=== PATIENT | female | born 1995 | race Caucasian/White ===

== ENCOUNTER 2018-07-08 14:29 | Outpatient (CLI) | payer BC, SELFPAY ==
[2018-07-08 15:15] LABS: Abs Immature Grans 0.01 k/cumm (0.0-0.09); Absolute Eosinophil Count 0.08 k/cumm (0.0-0.7); Absolute Lymphocyte Count 1.28 k/cumm (1.2-3.4); Absolute Monocyte Count 0.39 k/cumm (0.11-0.7); Absolute Neutrophil Count 5.41 k/cumm (1.2-6.7); Eosinophils % 1.1; HCT 39.1 % (36.0-46.0); HGB 13.6 g/dL (12.0-15.5); Immature Grans % 0.1; Lymphocytes % 17.9; Mean Corp. HGB Concentration 34.8 g/dL (32.0-36.0); Mean Corpuscular Hemoglobin 29.1 pg (27.0-33.0); Mean Corpuscular Volume 83.5 fL (80-95); Mean Platelet Volume 9.9 fL (8.0-11.0); Monocytes % 5.4; Neutrophils % 75.5; Platelet Count 267 x1000/uL (130-400); RBC 4.68 m/cumm (4.00-5.20); White Blood Cell Count 7.17 k/cumm (4.4-10.8)
[2018-07-08 17:11] LABS: FREE T4 1.23 ng/dL (0.76-1.46)
[2018-07-09 10:09] LABS: HIV-1/2 Ag & Ab Screen Negative (NEGAT)
[2018-07-11 11:15] LABS: Hepatitis C Ab w Rflx HCV PCR Negative (NEGAT)
[2018-07-11 12:07] LABS: Hepatitis B Surface Ag Negative (NEGAT)
[2018-07-11 13:58] LABS: Rubella IgG Ab (UVM) Positive; Syphilis Serology (RPR) Negative (Negative)
[2018-07-11 14:02] LABS: Varicella IgG Antibody Positive
== END 2018-07-08 14:49 ==
PROVIDERS: PCP Specialist/Technologist Athletic Trainer; Visit Provider Advanced Practice Midwife
DX: Z34.91 Encounter for supervision of normal pregnancy, unspecified, first trimester (principal); Z11.4 Encounter for screening for human immunodeficiency virus [HIV]; Z11.59 Encounter for screening for other viral diseases; Z01.84 Encounter for antibody response examination
CPT/HCPCS: 36415; 80055; 86787; 86803; 86850; 86900; 86901; 87340; 87389; 84439; 84443; 86592; 86762

== ENCOUNTER 2018-07-08 16:45 | Outpatient (REF) | payer BC, SELFPAY ==
--- NOTE | 2018-07-08 14:45 | PAPFT_PTH ---
PATIENT: Karin Nair LOC: [facility] U#:[id number] AGE/SX: 23/F ROOM: RE07/08/[address]: Sherrie Kenny CNM : 1995 BED: DIS: 07/08/2018 SPEC #: [id number] RECD: 07/08/18 18:03 STATUS: AARON RECayden #: [id number] RICARDO: 07/08/18 14:[address]: Sherrie Kenny DEPT: [facility] Cytology RECD BY: Eloise Dumont ENTERED: 07/08/18 18:04 SP TYPE: PAPFT OTHR DR: Vinicio Hauser Tissues: 1 - CX/ENDOCX FOR PAP SMEARS Procedures: PAP THIN PREP/[facility] Screening Comments: [id number]
[2018-07-08 19:19] LABS: *AMPHETAMINES SCREEN URINE Negative (Negative); *BARBITURATES SCREEN URINE Negative (Negative); *BENZODIAZEPINES SCREEN URINE Negative (Negative); Cannabinoids THC Negative (Negative); Cocaine Screen,Urine Negative (Negative); METHADONE URINE SCREEN Negative (Negative); OPIATES URINE SCREEN Negative (Negative)
[2018-07-08 19:44] LABS: Tricyclic Antidepressants Negative (Negative)
[2018-07-11 15:30] LABS: Chlamydia Result Negative; GC Result Negative
[2018-07-13 08:28] LABS: Buprenorphine Negative
== END 2018-07-08 17:05 ==
LOC: LBN 16:45
PROVIDERS: PCP Specialist/Technologist Athletic Trainer; Visit Provider Advanced Practice Midwife
DX: Z12.4 Encounter for screening for malignant neoplasm of cervix (principal); Z11.3 Encounter for screening for infections with a predominantly sexual mode of transmission; Z34.91 Encounter for supervision of normal pregnancy, unspecified, first trimester
CPT/HCPCS: 80307; 87491; 87591; 88142; 87086

== ENCOUNTER 2018-07-15 10:09 | Outpatient (CLI) | payer BC, SELFPAY ==
[2018-07-15 11:44] LABS: Glucose,1 Hr (Glucola) 129 mg/dL (80-140)
[2018-07-15 11:57] LABS: TSH (W/Ref FT4) 0.29 uIU/mL (0.358-3.74)
[2018-07-15 12:25] LABS: FREE T4 1.06 ng/dL (0.76-1.46)
[2018-07-18 09:24] LABS: Thyroglobulin Antibody 83 U/mL (<61); Thyroperoxidase Antibody 28 U/mL (<61)
== END 2018-07-15 10:29 ==
PROVIDERS: PCP Specialist/Technologist Athletic Trainer; Visit Provider Advanced Practice Midwife
DX: R79.89 Other specified abnormal findings of blood chemistry (principal); Z34.91 Encounter for supervision of normal pregnancy, unspecified, first trimester
CPT/HCPCS: 36415; 82950; 86376; 84439; 84443

== ENCOUNTER 2018-08-26 00:09 | Outpatient (CLI) | payer BC, SELFPAY ==
--- NOTE | 2018-08-26 14:04 | DI.US_ITS ---
SYMPTOMS/DIAGNOSIS: ANATOMY SCAN, Z34.90 OB ULTRASOUND: Many abnormalities cannot be diagnosed. A normal exam does not exclude a congenital anomaly. Radiology No. [id number] LMP: 04/17/18 Exam Date: 08/26/18 [facility] wks days on EDC ([facility]) 01/22/19 Confirmed: HISTORY: ---- PREDICTED GESTATIONAL AGE NUMBER 18+5 weeks with a range of 17+5 weeks to 19+5 weeks. 1 Determined by___1STUS___LMP___HISTORY PLACENTA PRESENTATION Grade I Cephalic___ Anterior___Posterior_X__ Breech____ Right Left Transverse(head right___ Fundal___Low-lying___Previa___ Transverse(head left___ Varying__X____ BIOMETRY AMNIOTIC FLUID BPD: 42 mm 18+5 weeks Normal HC: mm 19 weeks Oligo Polyhydramnios AC: mm 18+3 weeks FL: mm 18+5 weeks AMNIOTIC FLUID INDEX >26 WK CRL: mm weeks Cisterna Magna: 3.0 mm CI: 82 RUQ: LUQ Cerebellum: 1.9 cm EFW: 249 +/- 37 grams Percentile RLQ: LLQ Total: cms Composite AGE= 18+5 wks EDC by US: 01/22/19 BIOPHYSICAL PROFILE ANATOMY IDENTIFIED SCORE 0/2 Heart: 4-Chamber_X__Rate:BPM 152 LVOT:____X RVOT:____X____ Amniotic Fluid(>2cms)____ Stomach:___X____ Kidneys:___X____ Respirations (>30 secs) Bladder:___X Post. Fossa:__X Body Flex/Extension 3-vessel cord:___X____Ventricles:___X Cord insertion:__X___ Lips:_X___ Extremity Flex/Extension Spinal morphology:____X____Nose:__X__ Total Score= Palate:__X NS=not seen COMMENTS: OB ultrasound was performed utilizing second trimester protocol. biometry is consistent with gestational age of 18 weeks 5 days and an EDC of 01/22/19. Placenta is posterior with no evidence of placenta previa. There is visually a normal quantity of amniotic fluid. anomaly screen is within normal limits as per the attached checklist.
[2018-09-05 17:27] LABS: Result Summary NEGATIVE; Specimen WB Whole Blood
== END 2018-08-26 00:29 ==
PROVIDERS: Nurse Practitioner; PCP Specialist/Technologist Athletic Trainer; Visit Provider Advanced Practice Midwife
DX: Z34.92 Encounter for supervision of normal pregnancy, unspecified, second trimester (principal); Z36.89 Encounter for other specified antenatal screening; Z13.228 Encounter for screening for other metabolic disorders
CPT/HCPCS: 36415; 76805; 81220

== ENCOUNTER 2018-11-08 14:52 | Outpatient (CLI) | payer BC, SELFPAY ==
[2018-11-08 15:28] LABS: HCT 35.1 % (36.0-46.0); HGB 11.6 g/dL (12.0-15.5); Mean Corpuscular Hemoglobin 29.3 pg (27.0-33.0); Mean Corpuscular Volume 88.6 fL (80-95); Mean Platelet Volume 9.8 fL (8.0-11.0); Platelet Count 279 x1000/uL (130-400); RBC 3.96 m/cumm (4.00-5.20); RBC Distribution Width 13.7 % (11.7-14.6); White Blood Cell Count 8.82 k/cumm (4.4-10.8)
[2018-11-08 15:42] LABS: Glucose,1 Hr (Glucola) 126 mg/dL (80-140)
== END 2018-11-08 15:12 ==
PROVIDERS: PCP Specialist/Technologist Athletic Trainer; Visit Provider Advanced Practice Midwife
DX: Z34.93 Encounter for supervision of normal pregnancy, unspecified, third trimester (principal)
CPT/HCPCS: 36415; 82950; 85027

== ENCOUNTER 2018-12-28 16:25 | Outpatient (REF) | payer BC, SELFPAY | END 2018-12-28 16:45 | LOC: LBN 16:25 | PROVIDERS: PCP Specialist/Technologist Athletic Trainer; Visit Provider Advanced Practice Midwife | DX: Z34.93 Encounter for supervision of normal pregnancy, unspecified, third trimester (principal); Z36.85 Encounter for antenatal screening for Streptococcus B | CPT/HCPCS: 87081 ==

== ENCOUNTER 2019-01-30 09:54 | Outpatient (CLI) | payer BC, SELFPAY | END 2019-01-30 10:14 | PROVIDERS: PCP Specialist/Technologist Athletic Trainer; Visit Provider Advanced Practice Midwife | DX: O48.0 Post-term pregnancy (principal); Z3A.41 41 weeks gestation of pregnancy | CPT/HCPCS: 59025 ==

== ENCOUNTER 2019-02-01 21:29 | Observation (INO) | payer BC, SELFPAY | END 2019-02-02 00:15 | disposition home or self-care (01) | PROVIDERS: Admitting Provider Advanced Practice Midwife; PCP Specialist/Technologist Athletic Trainer; Visit Provider Advanced Practice Midwife | DX: O47.1 False labor at or after 37 completed weeks of gestation (principal); O48.0 Post-term pregnancy; Z3A.41 41 weeks gestation of pregnancy | CPT/HCPCS: G0378 ==

== ENCOUNTER 2019-02-02 08:42 | Outpatient (CLI) | payer BC, SELFPAY | END 2019-02-02 09:02 | PROVIDERS: PCP Specialist/Technologist Athletic Trainer; Visit Provider Advanced Practice Midwife | DX: O48.0 Post-term pregnancy (principal); Z3A.41 41 weeks gestation of pregnancy | CPT/HCPCS: 59025 ==

== ENCOUNTER 2019-02-03 10:59 | Inpatient (IN) | payer BC, SELFPAY ==
[2019-02-03] MEDS: miSOPROStol 50 MCG TAB PO (12:57)
[2019-02-03 19:31] LABS: HCT 37.3 % (36.0-46.0); HGB 12.6 g/dL (12.0-15.5); Mean Corp. HGB Concentration 33.8 g/dL (32.0-36.0); Mean Corpuscular Hemoglobin 28.8 pg (27.0-33.0); Mean Corpuscular Volume 85.2 fL (80-95); Mean Platelet Volume 10.7 fL (8.0-11.0); Platelet Count 307 x1000/uL (130-400); RBC 4.38 m/cumm (4.00-5.20); RBC Distribution Width 14.2 % (11.7-14.6); White Blood Cell Count 10.58 k/cumm (4.4-10.8)
[2019-02-03] MEDS: CLINDAMYCIN 900 MG/50 ML BAG 50 MG IVPB ×2 (21:59→22:00)
[2019-02-04] MEDS: Bupivacaine 0.25% Pres-Free 10 ML VIAL EP (02:00)
[2019-02-04] MEDS: Lidocaine 1% Pres-Free 5 ML VIAL IJ (02:00)
[2019-02-04] MEDS: fentaNYL 100 MCG/2 ML VIAL EP (02:45)
[2019-02-04] MEDS: Bupivacaine 0.25% Pres-Free 10 ML VIAL (03:17)
[2019-02-04] MEDS: FentaNYL/ROPIvacaine 2 mcg/ml and 0.1% 200 ML CADD Cassette EP (03:17)
[2019-02-04] MEDS: CLINDAMYCIN 900 MG/50 ML BAG 50 MG IVPB (06:08)
[2019-02-04] MEDS: Lactated Ringers 1,000 ML 125 ML IV (14:45)
[2019-02-04] MEDS: Lidocaine 1% Multi-Dose 50 ML VIAL (15:34)
--- NOTE | 2019-02-04 15:51 | W.PM.OP ---
Date of service: 02/04/19 Time of Service: 15:51 Operative Note DATE OF PROCEDURE: 02/04/19 PRE-OP DIAGNOSIS: Vaginal laceration following POST-OP DIAGNOSIS: same PROCEDURE: Repair of vaginal and labial obstetrical lacerations SURGEON: Abhishek Kenyon ANESTHESIA: MAC, regional and local ESTIMATED BLOOD LOSS: 200 PATHOLOGY: none sent COMPLICATIONS: None Patient was transported to: floor Patient's condition: stable Findings: 1. Sulcus laceration extending into ischiorectal fossa on right and entire length of vagina to right lateral fornix 2. Full thickness bilateral labial laceratios. 3. Second degree perineal laceration 4. Right labia minora laceration Procedure Description: The patient was taken to the operating room and under both epidural anesthesia and sedation she was prepped and draped in the usual sterile manner. A Nichole retractor was placed in the vagina. The apex of the sulcus laceration was identified and a running stitch of 2-0 vicryl was used to repair the laceration. The labial lacerations were repaired bilaterally with interrupted horizontal mattress sutures of 3-0 vicryl. The laceration to the right labia minor was repaired with 4-0 vicryl suture. Vaginal packing and a sims catheter were placed. The procedure was concluded. Sponge, lap and needle counts were correct at the conclusion of the procedure. The patient tolerated the procedure well and was transferred to the floor in stable condition.
[2019-02-04] MEDS: HYDROcodone 5/Acetaminophen 325 TAB PO (20:29)
[2019-02-05] MEDS: HYDROcodone 5/Acetaminophen 325 TAB PO ×3 (03:11→20:33)
[2019-02-05] MEDS: Acetaminophen 325 MG TAB 650 MG PO ×3 (04:58→16:56)
[2019-02-05] MEDS: Ibuprofen 600 MG TAB PO ×3 (04:58→16:56)
[2019-02-05 07:02] LABS: HCT 30.6 % (36.0-46.0); HGB 9.9 g/dL (12.0-15.5); Mean Corp. HGB Concentration 32.4 g/dL (32.0-36.0); Mean Corpuscular Hemoglobin 28.2 pg (27.0-33.0); Mean Corpuscular Volume 87.2 fL (80-95); Mean Platelet Volume 10.5 fL (8.0-11.0); Platelet Count 221 x1000/uL (130-400); RBC 3.51 m/cumm (4.00-5.20); RBC Distribution Width 14.5 % (11.7-14.6); White Blood Cell Count 10.28 k/cumm (4.4-10.8)
[2019-02-05] MEDS: Docusate Sodium 100 MG CAP PO ×2 (07:48→18:25)
[2019-02-05] MEDS: Hamamelis Leaf/Glycerin 100 EACH BOX PR (07:49)
[2019-02-06] MEDS: HYDROcodone 5/Acetaminophen 325 TAB PO ×2 (02:15→08:17)
[2019-02-06] MEDS: Acetaminophen 325 MG TAB 650 MG PO (02:15)
[2019-02-06] MEDS: Ibuprofen 600 MG TAB PO ×2 (02:15→08:17)
== END 2019-02-06 14:55 | disposition home or self-care (01) | DRG 807 ==
PROVIDERS: Obstetrics & Gynecology; Admitting Provider Advanced Practice Midwife; PCP Specialist/Technologist Athletic Trainer; Visit Provider Advanced Practice Midwife
PROC: 0KQM0ZZ Repair Perineum Muscle, Open Approach (ICD-10-PCS; CPT 57260; principal; 2019-02-04 14:40)
DX: O70.1 Second degree perineal laceration during delivery (principal); Z37.0 Single live birth; O69.2XX0 Labor and delivery complicated by other cord entanglement, with compression, not applicable or unspecified; O69.81X0 Labor and delivery complicated by cord around neck, without compression, not applicable or unspecified; O48.0 Post-term pregnancy; Z3A.41 41 weeks gestation of pregnancy; O99.824 Streptococcus B carrier state complicating childbirth; O32.8XX0 Maternal care for other malpresentation of fetus, not applicable or unspecified; Z88.0 Allergy status to penicillin
CPT/HCPCS: 59300; 36415; 85027; 86850; 86900; 86901; 59025; 59200; G0378; J1885; J3010

== ENCOUNTER 2019-03-17 12:48 | Outpatient (REF) | payer BC, SELFPAY ==
--- NOTE | 2019-03-17 11:55 | PAPFT_PTH ---
PATIENT: Karin Nair LOC: [facility] U#:[id number] AGE/SX: 24/F ROOM: RE03/17/[address]: Sergei Tapia RN : 1995 BED: DIS: 03/17/2019 SPEC #: [id number] RECD: 03/17/19 17:18 STATUS: AARON RECayden #: [id number] RICARDO: 03/17/19 11:[address]: Sergei Tapia [facility] Cytology RECD BY: Eloise Dumont ENTERED: 03/17/19 17:18 SP TYPE: PAPFT OTHR DR: Vinicio Hauser Tissues: 1 - CX/ENDOCX FOR PAP SMEARS Procedures: PAP THIN PREP/[facility] Screening Comments: [id number]
[2019-03-17 19:29] LABS: Bilirubin Negative (Negative); Blood Negative (Negative); Clarity Clear; Glucose Negative (Negative); Ketones Negative (Negative); Leukocyte Esterase Negative (Negative); Nitrite Negative (Negative); Specific Gravity 1.015 (1.005-1.025); Urobilinogen 0.2 EU/dL (Up TO 0.2)
== END 2019-03-17 13:08 ==
LOC: LBN 12:48
PROVIDERS: PCP Specialist/Technologist Athletic Trainer; Visit Provider Advanced Practice Midwife
DX: N32.81 Overactive bladder (principal); Z12.4 Encounter for screening for malignant neoplasm of cervix
CPT/HCPCS: 88142; 81003; 87086

== ENCOUNTER 2019-07-22 14:16 | Emergency (ER) | payer BC, SELFPAY ==
[2019-07-22 14:23] VITALS: BP 151/85; PULSE 95; RESP 18; TEMP 36.7; O2SAT 100
--- NOTE | 2019-07-22 14:42 | DI.RAD_ITS ---
EXAM: XR CHEST 2V PA LATERAL INDICATION: cough. COMPARISON: No exams were available for comparison TECHNIQUE: 2D digital imaging was performed. FINDINGS: Heart size and pulmonary vasculature within normal limits. The lungs are clear. No effusions or pne umothoraces are identified. No acute osseous abnormalities present. IMPRESSION: No acute pulmonary process.
--- NOTE | 2019-07-22 15:44 | DI.VRAD_ITS ---
PROCEDURE INFORMATION: Exam: XR Chest, 2 Views Exam date and time: 07/22/2019 2:42 PM Clinical history: 24 years old, female; Other: Cough TECHNIQUE: Imaging protocol: XR of the chest Views: 2 views. COMPARISON: No relevant prior studies available. FINDINGS: Lungs: Unremarkable. Normal lung expansion. No consolidation. Pleural space: Unremarkable. No pleural effusion. No pneumothorax. Heart/Mediastinum: Unremarkable. No cardiomegaly. Bones/joints: Unremarkable. IMPRESSION: Normal chest exam. Dictated and Authenticated by: Lilia Beaver MD. Ordering:NICHOLAS Dee MD
--- NOTE | 2019-07-23 16:26 | ED.GENADUL_ITS ---
Discharge Plan Disposition Patient Disposition: HOME Condition: Good Discharge Details Chief Complaint: RespSymp Clinical Impression: Bronchitis Primary Care Provider: Vinicio Hauser ED Provider: Leila Weinstein Home Meds and New Rx's Prescriptions: New albuterol sulfate [Proventil HFA] 90 mcg/actuation HFA aerosol inhaler 2 puff IH Q6H PRN (Reason: shortness of breath or wheezing) Qty: 8 RF: 0 No Action magnesium 250 mg tablet 250 mg PO DAILY RF: 0 Zyrtec 10 mg capsule 10 mg PO DAILY RF: 0 Vitamin tablet 1 tab PO DAILY RF: 0 cholecalciferol (vitamin D3) 1,000 unit capsule 1,000 unit PO DAILY RF: 0 norethindrone (contraceptive) 0.35 mg tablet 0.35 mg PO DAILY Qty: 84 RF: 3 (DME) breast pump device See Dose Instructions .ROUTE .MEDSUPPLY Qty: 1 RF: 0 Discharge Instructions Instructions: Acute Bronchitis (ED) Additional Instructions: Drink plenty of fluids. Rest activities as tolerated. Consider [id number] cough medication or honey as discussed. Use inhaler every 6 hours for coughing or shortness of breath associated with wheezing as discussed. Your chest x-ray today is reassuring. Recheck with primary care doctor and if not improving in the next 3 days.@Return for any worsening, concerns, fever or alarming symptoms sooner if needed. Discharge Data Discharge Date/Time-TO BE ENTERED AT DEPARTURE: 07/22/19 15:56 Medical Decision Making Is a very pleasant 24-year-old patient who presents for complaints of persistent cough lasting approximately 3 weeks. Patient did complete a course of azithromycin 1 week ago which did somewhat relieve her symptoms but is concerned with the persistent cough. Patient denies active chest or back pain. Patient is requesting chest x-ray today to be sure she has no persistent pneumonia. Patient ultimately has an unremarkable chest x-ray today. No identified p neumonia or respiratory infection or effusion. FINDINGS: Lungs: Unremarkable. Normal lung expansion. No consolidation. Pleural space: Unremarkable. No pleural effusion. No pneumothorax. Heart/Mediastinum: Unremarkable. No cardiomegaly. Bones/joints: Unremarkable. IMPRESSION: Normal chest exam. Given patient has no associated fever and is not ill-appearing I do feel is most appropriate to treat patient symptomatically. Patient is breast-feeding and is quite concerned about the use of cough medications. Patient does consent to an inhaler. Conservative treatments also encouraged. The patient was stable and requested discharge. Prior to discharge, my usual and customary return precautions were reviewed with the patient - this included follow-up instructions and reasons to return to the Emergency Department if conditions worsens, does not improve as expected, or other new concerns arise. HPI General Date/Time Provider Initiated Documentation: 07/22/19 14:48 . HPI Narrative: This is a 24-year-old woman who presents to the emergency room today for persistent cough. Patient reports she has been sick for the last 3 weeks. Patient reports originally nasal congestion, sore throat and coughing. Patient reports 1 week ago she was seen and evaluated and treated with azithromycin which did improve some of her symptoms but yet cough continues to persist. Patient reports mild wheezing. Patient denies difficulty breathing or shortness of breath. She does report mild malaise. No measured fever or chills at this time. Denies significant chest or back pain. No abdominal pain, nausea, vomiting or diarrhea associated. Patient eating and drink without difficulty. No voice change or trismus. Patient seeking reevaluation today due to persistence of complaints Related Data Home Medications Medication Instructions Recorded Confirmed cholecalciferol (vitamin D3) 1,000 1,000 unit PO DAILY 06/03/18 03/17/19 unit capsule prenat.vits,nayeli,smg-hhom-tuczf 1 tab PO DAILY 06/03/18 07/22/19 magnesium 250 mg tablet 250 mg PO DAILY tab 08/05/18 03/17/19 cetirizine 10 mg capsule 10 mg PO DAILY 12/28/18 03/17/19 breast pump #1 each 02/06/19 03/17/19 norethindrone (contraceptive) 0.35 0.35 mg PO DAILY #84 tab 02/17/19 03/17/19 mg tablet albuterol sulfate [Proventil HFA] 2 puff IH Q6H PRN #8 gm 07/22/19 Previous Rx's Medication Instructions Recorded breast pump #1 each 02/06/19 norethindrone (contraceptive) 0.35 0.35 mg PO DAILY #84 tab 02/17/19 mg tablet albuterol sulfate [Proventil HFA] 2 puff IH Q6H PRN #8 gm 07/22/19 Allergies Allergy/AdvReac Type Severity Reaction Status Date / Time Penicillins Allergy Unverified 07/22/19 14:27 General Stated Complaint: RespSymp ZOE: 4 Review of Systems All systems reviewed & are unremarkable except as noted in HPI and below Constitutional Constitutional: Denies fever(s), Denies headache(s) and Reports malaise ENT Ears, Nose, Mouth, and Throat: Denies vertigo, Denies dizziness, Denies headache(s), Denies sinus pain, Denies sinus pressure and Reports sore throat Cardiovascular Cardiovascular: Denies dyspnea on exertion Respiratory Respiratory: Reports cough, Denies dyspnea on exertion, Denies stridor and Reports wheezing Gastrointestinal Gastrointestinal: Denies abdominal pain, Denies nausea and Denies vomiting Genitourinary Genitourinary: Denies dysuria Neurologic Neurologic: Denies vertigo, Denies dizziness and Denies headache(s) Allergic/Immunologic Allergic/Immunologic: Reports wheezing PFSH Medical History Bilateral fibroadenoma's breasts BMI 37.0-37.9, adult (Acute) Fibroadenoma of breast (Acute) (Resolved) Surgical History Biopsy of breast 08/2013 bilateral breast fibroadenoma's [facility] [place] teeth extractions Family History (Updated 07/08/18 @ 13:34 by Sommer Kenny) Mother Diabetes GDM each x2, Obesity Hypertension depression Father No problems noted. 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 Date GA/Weeks # Outcome Route Wgt Sex Labor Lgth Anesthes ia Location Prov Complic 02/04/19 41 No Successful vaginal 3.572 kg Female Sommer Kenny CNM Delivery Date: 02/04/19 On 02/16/19 @ 12:32 Viki REALStephanie extensive vaginal lacerations perineal,vaginal second degree Exam Narrative Exam Narrative: CONST: Healthy appearing patient, in no acute distress. Well hydrated. Alert and alert. HENMT: Head nomocephalic, normal to inspection. Atraumatic. Hearing grossly normal. Patient with mild erythema to the TMs bilaterally without significant associated effusion. No sinus pain and pressure with palpation. Patient with mild pharyngeal erythema. EYES: General normal appearance. Alignment normal. Eyelids normal. Conjunctiva normal. NECK: Normal visual inspection. FROM. Trachea midline. No Midline tenderness. No cervical lymph adenopathy present CHEST: Normal insepection of the chest. RESP: Normal respiratory effort. Speaking full sentences. No cough. No audible wheezing. No retractions. Breath sounds are equal and full bilaterally. No significant wheezing on exam, rhonchi's or rales. Cardio: No murmurs, rubs. Regular rate and rhythm. SKIN: Normal. Dry. No rashes. NEURO: Alert and awake. Speech clear. PSYCH: Normal affect. Cooperative. Course Vital Signs Vital signs: Vital Signs Temperature 36.7 C 07/22/19 14:23 Pulse 95 H 07/22/19 14:23 Respiratory Rate 18 07/22/19 14:23 Blood Pressure 151/85 H 07/22/19 14:23 Pulse Oximetry 100 07/22/19 14:23 Temperature 36.7 C 07/22/19 14:23 Temperature Source Temporal Artery Scan 07/22/19 14:23 Pulse 95 H 07/22/19 14:23 Respiratory Rate 18 07/22/19 14:23 Respiratory Effort Non-Labored 07/22/19 14:39 Blood Pressure 151/85 H 07/22/19 14:23 Pulse Oximetry 100 07/22/19 14:23 Oxygen Delivery Method Room Air 07/22/19 14:23 Oxygen Flow Rate 0 07/22/19 14:23 Pain Level 0 07/22/19 14:23
== END 2019-07-22 15:56 | disposition home or self-care (01) ==
PROVIDERS: Emergency Provider Physician Assistant; PCP Specialist/Technologist Athletic Trainer
DX: J20.9 Acute bronchitis, unspecified (principal)
CPT/HCPCS: 99283; 71046

== ENCOUNTER 2021-07-07 19:15 | Outpatient (REF) | payer BC, SELFPAY ==
[2021-07-07 20:54] LABS: *AMPHETAMINES SCREEN URINE Negative (Negative); *BARBITURATES SCREEN URINE Negative (Negative); *BENZODIAZEPINES SCREEN URINE Negative (Negative); Cannabinoids THC Negative (Negative); Cocaine Screen,Urine Negative (Negative); METHADONE URINE SCREEN Negative (Negative); OPIATES URINE SCREEN Negative (Negative)
[2021-07-07 20:55] LABS: Tricyclic Antidepressants Negative (Negative)
[2021-07-09 16:09] LABS: Chlamydia Result Negative (Negative); GC Result Negative (Negative)
[2021-07-12 12:30] LABS: Buprenorphine Negative ng/mL (Cutoff: 5.0); Norbuprenorphine Negative ng/mL (Cutoff: 2.5)
== END 2021-07-07 19:16 | disposition home or self-care (01) ==
LOC: LBN 19:15
PROVIDERS: PCP Specialist/Technologist Athletic Trainer; Visit Provider Advanced Practice Midwife
DX: O26.891 Other specified pregnancy related conditions, first trimester; N89.8 Other specified noninflammatory disorders of vagina; Z34.91 Encounter for supervision of normal pregnancy, unspecified, first trimester
CPT/HCPCS: 80307; 87491; 87591; 87086; 87480; 87510; 87660

== ENCOUNTER 2021-07-14 02:56 | Outpatient (CLI) | payer BC, SELFPAY ==
[2021-07-14 07:22] LABS: Kit/Specimen SENT
[2021-07-14 07:34] LABS: Abs Immature Grans 0.02 10^3/uL (0.0-0.06); Absolute Basophil Count 0.01 10^3/uL (0.0-0.2); Absolute Eosinophil Count 0.06 10^3/uL (0.0-0.7); Absolute Monocyte Count 0.28 10^3/uL (0.1-0.8); Absolute Neutrophil Count 5.67 10^3/uL (1.2-6.7); Basophils % 0.1; Eosinophils % 0.9; HCT 40.3 % (36.0-46.0); HGB 13.4 g/dL (11.2-15.7); Immature Grans % 0.3; Lymphocytes % 14.2; MCH 28.9 pg (27.0-33.0); MCHC 33.3 % (32.0-36.0); MPV 9.9 fL (8.0-11.0); Neutrophils % 80.5; Nucleated RBC 0 %; Platelet Count 239 10^3/uL (130-400); RBC 4.63 10^6/uL (3.93-5.22); RDW 12.8 % (11.7-14.6); RDW-SD 40.3 fL; WBC 7.04 10^3/uL (4.4-10.8)
[2021-07-14 07:45] LABS: Glucose,1 Hr (Glucola) 91 mg/dL (80-140)
[2021-07-15 10:03] LABS: Hepatitis B Surface Ag Negative (Negative)
[2021-07-15 10:10] LABS: Varicella IgG Antibody Positive (See Note)
[2021-07-15 10:20] LABS: Rubella IgG Ab (UVM) Positive (See Note)
[2021-07-15 10:40] LABS: HIV-1/2 Ag & Ab Screen Negative (Negative)
[2021-07-15 10:45] LABS: Hepatitis C Ab w Rflx HCV PCR Negative (Negative)
[2021-07-15 14:41] LABS: Syphilis Total Ab w/Reflex Nonreactive (Nonreactive)
[2021-07-17 11:51] LABS: Specimen WB Whole Blood
== END 2021-07-14 02:57 | disposition home or self-care (01) ==
LOC: LBO 02:56
PROVIDERS: PCP Specialist/Technologist Athletic Trainer; Visit Provider Advanced Practice Midwife
DX: Z34.91 Encounter for supervision of normal pregnancy, unspecified, first trimester (principal)
CPT/HCPCS: 36415; 81329; 82950; 86787; 86803; 86850; 86900; 86901; 87340; 87389; 85025; 86762; 86780

== ENCOUNTER 2021-10-13 01:52 | Outpatient (CLI) | payer BC, SELFPAY ==
[2021-10-13 14:39] LABS: HCT 38.6 % (36.0-46.0); MCHC 33.7 % (32.0-36.0); MCV 88.9 fL (80-95); MPV 9.4 fL (8.0-11.0); Platelet Count 233 10^3/uL (130-400); RBC 4.34 10^6/uL (3.93-5.22); RDW 13.4 % (11.7-14.6); RDW-SD 43.7 fL; WBC 7.57 10^3/uL (4.4-10.8)
[2021-10-13 14:54] LABS: Glucose,1 Hr (Glucola) 144 mg/dL (80-140)
== END 2021-10-13 01:53 | disposition home or self-care (01) ==
LOC: LBO 01:52
PROVIDERS: PCP Specialist/Technologist Athletic Trainer; Visit Provider Advanced Practice Midwife
DX: Z34.93 Encounter for supervision of normal pregnancy, unspecified, third trimester (principal)
CPT/HCPCS: 36415; 82950; 85027

== ENCOUNTER 2021-10-27 01:37 | Outpatient (CLI) | payer BC, SELFPAY ==
[2021-10-27 09:08] LABS: Glucose 1 Hour 141 mg/dL
[2021-10-27 10:55] LABS: Glucose 3 Hour 112 mg/dL
== END 2021-10-27 01:38 | disposition home or self-care (01) ==
LOC: LBO 01:37
PROVIDERS: PCP Specialist/Technologist Athletic Trainer; Visit Provider Advanced Practice Midwife
DX: Z34.93 Encounter for supervision of normal pregnancy, unspecified, third trimester (principal); Z3A.29 29 weeks gestation of pregnancy
CPT/HCPCS: 36415; 82951

== ENCOUNTER 2021-12-23 19:59 | Outpatient (REF) | payer BC, SELFPAY ==
[2021-12-23 19:42] LABS: *AMPHETAMINES SCREEN URINE Negative (Negative); *BARBITURATES SCREEN URINE Negative (Negative); *BENZODIAZEPINES SCREEN URINE Negative (Negative); Cannabinoids THC Negative (Negative); Cocaine Screen,Urine Negative (Negative); METHADONE URINE SCREEN Negative (Negative); OPIATES URINE SCREEN Negative (Negative)
[2021-12-23 19:44] LABS: Tricyclic Antidepressants Negative (Negative)
[2021-12-30 10:34] LABS: Buprenorphine Negative ng/mL (Cutoff: 5.0)
== END 2021-12-23 20:00 | disposition home or self-care (01) ==
LOC: LBN 19:59
PROVIDERS: PCP Specialist/Technologist Athletic Trainer; Visit Provider Advanced Practice Midwife
DX: Z34.93 Encounter for supervision of normal pregnancy, unspecified, third trimester (principal); Z3A.36 36 weeks gestation of pregnancy; Z36.85 Encounter for antenatal screening for Streptococcus B
CPT/HCPCS: 80307; 87081

== ENCOUNTER 2022-01-13 23:19 | Inpatient (IN) | payer BC, SELFPAY ==
[2022-01-13 23:33] VITALS: BP 122/82; PULSE 75; RESP 18; TEMP 36.4
--- NOTE | 2022-01-13 23:36 | W.PM.OBHPL1 ---
Date of service: 01/13/22 Time of Service: 23:36 Assessment and Plan Assessment and plan (1) PROM with onset of labor within 24 hours of rupture: Status: Acute Assessment and plan: A: 27 yo @ 39+5 wks PROM at home <4 hrs ago, meconium tinged fluid Onset of spontaneous active labor Category 1 tracing; GBS negative Minimal risk for SD and PPH P: Admit to BC, CBC, T&S, COVID swab Expectant management, anticipate OB-HPI Labor/Delivery History of Present Illness Reason for Visit: SROM at term, spontanteous labor Chief Complaint: Uterine Contractions (contractions began about an hour after water broke); Suspected Rupture of Membranes , Associated Signs and Symptoms of Suspected ROM: large gush of fluid, brown/green tinged, at 2030. GARETH Calculator Estimated Delivery Date Method Current WG Current Estimate 01/14/22 LMP (Certain) 39w 6d Other Estimates 01/16/22 Ultrasound #1 39w 4d History of Present Expected Delivery Route/Plan - CNM FOB/ - Adrian Nair (2nd child together) BB yes to heather Johnson GBS neg support team: her mother Deonna & EDWARD (both vaccinated) Plans epidural if labor goes long Specific Issues/Plan 1. SMA and Nydia test desired lab appointment made - claritest neg 1a. SMA neg- declines AFP. Previously known CF negative 2. BMI >30 so early glucose ordered to be done with initial labs- glucose 91 2a. 28 week glucose 144. 3 hr GTT = normal (83/141/122/112) 3. Discussed option of PCN allergy testing at [facility], patient will let us know if she wants to do that 3a. Pt now 23 weeks, is interested in allergy testing, will refer 4. Covid vaccine status: Karin is vaccinated and boosted, Adrian had J&J vaccine 11/29/21 5. Constipation - stopped magnesium as headaches improved- encouraged to resume taking, increase to BID 6. Difficult latch and growth issues initially, successful after. Review of Systems All systems reviewed & are unremarkable except as noted in HPI and below Cardiovascular Cardiovascular: Reports as per HPI Respiratory Respiratory: Reports as per HPI Genitourinary Genitourinary: Reports system reviewed and no additional complaints, except as documented and Reports as per HPI Musculoskeletal Musculoskeletal: Reports back pain PFSH All Active Problems (Updated 01/13/22 @ 23:46 by Sherrie Kenny) PROM with onset of labor within 24 hours of rupture (Acute) Allergy history, penicillin (Acute) (Acute) Fibroadenoma of breast (Acute) BMI 37.0-37.9, adult (Acute) Medical History (Updated 01/13/22 @ 23:46 by Sherrie Kenny) Bilateral fibroadenoma's breasts Frequent headaches Took magnesium daily during Surgical History Biopsy of breast 08/2013 bilateral breast fibroadenoma's [facility] [place] teeth extractions Family History (Updated 07/07/21 @ 14:29 by Jackie Fernandez CNM) Mother Diabetes GDM each x2, Obesity Hypertension depression Personal history of malignant neoplasm Father Hypertension Personal history of malignant neoplasm Brother ADHD Paternal Grandfather Cancer kidney cancer Colon cancer Maternal Aunt Breast cancer double mastectomy no radiation, confined to milk duct. 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 Date GA/Weeks # Outcome Route Wgt Sex Labor Lgth Anesthesia Location Prov Complic 02/04/19 41 No Successful vaginal 7 lb 14 oz Female 24 regional Sommer Kenny CNM Delivery Date: 02/04/19 Last Updated by: Jackie Davalos CNM Manual OP rotation to OA, extensive lacerations repaired by MD. Huber. cervical ripening with misoprostol. Meds Allergies and Home Medications Allergies Allergy/AdvReac Type Severity Reaction Status Date / Time Penicillins Allergy Verified 01/13/22 10:28 Home Medications Medication Instructions Recorded Confirmed Type prenat.vits,nayeli,owg-snmm-nsekc 1 tab PO DAILY 06/03/18 01/13/22 History ( Vitamin) magnesium 250 mg tablet 500 mg PO DAILY tab 08/05/18 01/13/22 History docusate sodium 100 mg capsule 100 mg PO DAILY PRN 11/24/21 01/13/22 History (Colace) psyllium husk 0.4 gram capsule 0.4 g PO DAILY PRN 11/24/21 01/13/22 History (Daily Fiber) cetirizine 10 mg capsule (Zyrtec) 10 mg PO DAILY PRN 12/23/21 01/13/22 History Exam Physical Exam Vital signs: 122/82, 75, 18, 97.5 Vital Signs Reviewed: Yes Narrative: Pt accompanied by FOB and her mother as support Constitutional Constitutional: moderate distress, obese and cooperative Detailed Labor and Delivery Exam Dilation: 5 Effacement (%): 80 station: -3 Position: OP Cervix position: mid Consistency: soft VASQUEZ Score(Cervical Ripeness Score): 9 Amniotic Membrane Status: Ruptured Rupture Method: Spontaneous Amniotic Fluid: Meconium Pooling: Positive (gross rupture noted upon arrival to unit) Contraction Frequency(min): q2 Contraction Duration(sec): 50-70 Contraction Intensity: Moderate Fetus A Heart Rate Baseline: 130 Monitor Accelerations: 15 X 15 Monitor Decelerations: None Variability: Moderate (6-25 BPM) Presentation: Cephalic Categories: Category I Est. Weight: 8 lb 2.514 oz Est. Weight: 3700 gms Date of Membrane Rupture: 01/13/22 Time of Membrane Rupture: 20:30 HEENT Exam HEENT Exam: Normal Neck Exam Neck Exam: Normal Chest/Brest/Axilla Exam Chest Exam: Normal Breast Exam Breast Exam: Not Done Respiratory Exam Respiratory Exam: Normal Cardiovascular Exam Cardiovascular Exam: Normal Abdominal Exam Abdominal Exam: Normal (Gravid, soft between contractions) Rectal Exam Rectal Exam: Not Done Exam Exam: Normal Extremities Exam Extremities Exam: Normal Back/Spine/Pelvis Exam Back Exam: Normal Pelvis Adequate: Yes (proven to 7'14) Skin Exam Skin Exam: Normal Neurological Exam Neurological Exam: Normal Psychiatric Exam Psychiatric Exam: Normal (coping well with contractions, breathing strongly) Results Results Group Beta Strep: Negative Blood Type: A+ Rubella Status: Immune Varicella Immunity: Immune Risk Assessment Risk for Shoulder Dystocia Historical/Initial OB: POSITIVE FOR: Pre- BMI>30; NEGATIVE FOR: Pelvic Abnormality, Previous Shoulder Dystocia or Previous Macrosomia 40 Weeks: POSTIVE FOR: Maternal Weight Gain >40lb; NEGATIVE FOR: EFW> 4500 gms or Post Dates Increased Risk?: Yes Counseling: minimally increased risk due to BMI and TWG Delivery Plan @ 40 wks: spont labor, , proven to 714, nml glucose testing Risk for Pre-Eclampsia Daily Dose ASA Indicated: No Yes, if one or more: NEGATIVE FOR: Hx Pre-E/Gest HTN, Chronic HTN, Multiple Gestation, Pre-gestational DM, Renal Disease, Systemic Lupus or APA Syndrome Yes, if 2 or more: POSITIVE FOR: BMI>30; NEGATIVE FOR: Nulliparity, Age>= 35 yrs, >10yr btwn pregnancies, ethinicty, Mother/Sister w/ Pre-E or Previous IUGR Risk for Post- Hemorrhage Initial: NEGATIVE FOR: Multiple Gestation, Previous PPH, Known Clotting Deficiency, Grand Multiparity or Anticoagulation At Risk?: No Counseled re: Active Management: Yes Date/Initials: 07/07/21 [facility] Risks Reviewed Risks Reviewed Upon Admission: Yes (minimally inc risk for SD, pelvis proven to 714 and EFW within a pound )
[2022-01-13 23:55] LABS: Source Nasal/Nares
[2022-01-14] VITALS (13 sets, daily range): BP systolic 103–132; BP diastolic 58–82; PULSE 69–88; RESP 18–20; TEMP 36.2–37; O2SAT 97–100
[2022-01-14 00:13] LABS: HCT 40.2 % (36.0-46.0); HGB 13.1 g/dL (11.2-15.7); MCH 28.9 pg (27.0-33.0); MCHC 32.6 % (32.0-36.0); MCV 88.5 fL (80-95); MPV 10.2 fL (8.0-11.0); Platelet Count 285 10^3/uL (130-400); RBC 4.54 10^6/uL (3.93-5.22); RDW 13.1 % (11.7-14.6); RDW-SD 42.3 fL; WBC 15.76 10^3/uL (4.4-10.8)
[2022-01-14 00:33] LABS: COVID-19 PCR Negative (Negative)
[2022-01-14] MEDS: Oxytocin 10 UNITS/ML VIAL IM (01:25)
--- NOTE | 2022-01-14 01:58 | OBVDS_ITS ---
Date of service: 01/14/22 Time of Service: 01:58 OB Labor/ Delivery Information Baby A Delivery Delivery Method: Spontaneaous (in tub) Presentation: Cephalic Cephalic Position: Vertex Breech Position: N/A Cord Description-Baby A: 3 Vessels, Nuchal Cord (loose, reduced overhead) and Reduced Amniotic Fluid: Meconium Estimated Blood Loss: 250 ml Delivery Outcome: Liveborn Infant Transferred: Remains with Mother Note: After admission procedures were completed, pt assumed H&K position on floor mat resting on CUB, tolerating sips of water, until she felt increasing pelvic pressure. She requested to go to the tub which was prepared for her. Not long after entering the tub she began bearing down involuntarily. SVE was 8/100% vtx -1, and FHT per doptone were reassuring. 2nd stage huddle was completed, pt pushed strongly through several contractions and in semi-fowlers position was accomplished, male over intact perineum, loose nuchal cord reduced over head prior to shoulders which came easily, vigorous baby to mother's arms immediately. Pitocin IM 10 units given, cord was clamped after pulsations ceased and cut by Lucia LEON placenta then delivered intact with 3VC, cord blood was collected. Baby eventually handed to pt's mother, pt assisted out of tub to bed, and taken back to labor room. Perineal inspection for 1st degree lac which was well approximated and not bleeding, 1 stitch of 3.0 Vicryl was placed to sta bilize edges under topical Hurricaine spray for anesthetic. Strong family bonding observed, apgars 9/9, weight 3640 gms. Providers Nurse Volunteer Specialist: Sherrie Kenny Nurse: Tea Canchola Nurse: America Weiss Labor/Delivery Information Number of Babies in Womb: 1 Steroids Given: None Reason Steroids Not Administered: N/A Group Beta Strep: Negative Antibiotics Administered: No Rubella Status: Immune Blood Type: A+ Varicella Immunity: Immune Shoulder Dystocia: No Stages of Labor Onset of Labor Date: 01/13/22 Onset of Labor Time: 21:15 Complete Dilatation Date: 01/14/22 Complete Dilatation Time: 01:20 Labor - Stage 1 Duration: 24 hours and 0 minutes ROM Baby A: 01/13/22 ROM Baby A: 20:50 Delivery Date-Baby A: 01/14/22 Delivery Time-Baby A: 01:22 Labor Stage 2 Duration: 2 minutes Placenta Delivery Date-Baby A: 01/14/22 Placenta Delivery Time-Baby A: 01:29 Labor-Stage 3 Duration: 7 minutes Total Length of Labor-Baby A: 4 hours and 7 minutes Placenta Status: Delivered Baby A Infant Gender: Male Gestational Status: Term (39-41.6 wks) Gestational Age in Weeks/Days: 40 Weeks and 0 Days weight: 8 lb 0.397 oz Weight Comment: 3640 gms Score-1 Minute Interval(Baby A) Heart Rate-1 minute: 100 BPM or Greater Respiratory Effort- 1 minute: Spontaneous/Strong Cry Muscle Tone-1 minute: Active Movement Reflex Response-1 minute: Prompt Response Color-1 minute: Bluish Hands or Feet Total Score-1 minute: 9 Score-5 Minute Interval(Baby A) Heart Rate- 5 minute: 100 BPM or Greater Respiratory Effort-5 minute: Spontaneous/Strong Cry Muscle Tone-5 minute: Active Movement Reflex Response-5 minute: Prompt Response Color-5 minute: Bluish Hands or Feet Total Score- 5 minute: 9 Procedure Procedures: Cord Blood Collection Interventions Repair of Laceration Type: Perineal, Laceration Extension: First Degree. Sponge Count Correct: No Sponges Placed in Vagina, Sharp Count Correct: Yes.
[2022-01-14] MEDS: Benzocaine 20% 60 ML CAN (02:08)
[2022-01-14] MEDS: Dibucaine 1% 28 GM TUBE TP ×2 (02:38→21:17)
[2022-01-14] MEDS: Hamamelis Leaf/Glycerin 100 EACH BOX PR (02:38)
[2022-01-14] MEDS: Acetaminophen 325 MG TAB 650 MG PO ×3 (02:39→14:38)
[2022-01-14] MEDS: Ibuprofen 600 MG TAB PO ×3 (02:39→14:39)
[2022-01-15] MEDS: Ibuprofen 600 MG TAB PO (01:53)
[2022-01-15] MEDS: Acetaminophen 325 MG TAB 650 MG PO (01:53)
[2022-01-15 07:46] VITALS: BP 121/75; PULSE 71; RESP 16; TEMP 36.6; O2SAT 98
[2022-01-15] MEDS: Docusate Sodium 100 MG CAP PO (10:27)
[2022-01-15] MEDS: Dibucaine 1% 28 GM TUBE TP (10:44)
--- NOTE | 2022-01-15 11:14 | DSE_ITS ---
Date of service: 01/15/22 Time of Service: 10:00 DS: Diagnosis Discharge Diagnosis (1) Term delivered: Status: Acute Asessment and Plan: Caring for baby independently. Pain is managed well with oral analgesics. Voiding without difficulty. well. A - stable mother and baby , Post day 2 P - Discharge to home. Routine post instructions. [facility] Discharge Plan Disposition Patient Disposition: HOME Condition: Good Discharge Details Reason For Visit: SROM At Term,Spontanteous Labor Admit Date/Time: 01/13/22 23:19 Admit Provider: Sherrie Kenny Attending Provider: Sherrie Kenny Primary Care Provider: Vinicio Hauser Home Meds and New Rx's Prescriptions: No Action magnesium 250 mg tablet 500 mg PO DAILY 0RF Label Comments: taking 500 mg. docusate sodium [Colace] 100 mg capsule 100 mg PO DAILY PRN0RF psyllium husk [Daily Fiber] 0.4 gram capsule 0.4 g PO DAILY PRN0RF Zyrtec 10 mg capsule 10 mg PO DAILY PRN0RF Vitamin tablet 1 tab PO DAILY 0RF Discharge Instructions Stand Alone Forms: BC Instructions, BC Post Vaginal Deliver Activity:: Activity as Tolerated Equipment/Supplies:: No Equipment Needed Diet:: As Tolerated Discharge Orders Discharge Orders: Discharge Order (Routine); Ordered 01/15/22 Ordered By: Jackie Davalos Discharge Data Discharge Date/Time-TO BE ENTERED AT DEPARTURE: 01/15/22 10:50 OB:DS Summary Summary Vaginal Delivery Method: Spontaneaous (in tub) Laceration Description: Perineal Laceration Extension: First Degree Contraception Discussed Contraception Discussed: Yes Contraceptive Plan: Control Pill/Patch, [place] Infant Gender-Baby A: Male weight: 8 lb 0.397 oz Status at Discharge Functional status at discharge: independent ambulation Overall status at discharge: patient is back to baseline Mental Status: mental status grossly normal Speech and Movement: speech and movement normal Mood: congruent mood Affect: normal affect Exam Physical Exam Vital signs: Temp Pulse Resp BP Pulse Ox 97.9 F 71 16 121/75 98 01/15/22 07:46 01/15/22 07:46 01/15/22 07:46 01/15/22 07:46 01/15/22 07:46 Respiratory Exam Respiratory Exam: Normal Cardiovascular Exam Cardiovascular Exam: Normal Fundal Exam Fundus: Below Umbilicus and Firm Extremities Exam Extremity Exam: Normal Psychiatric Exam Psychiatric Exam: Normal PFSH All Active Problems (Updated 01/14/22 @ 02:20 by Sherrie Kenny) Term delivered (Acute) PROM with onset of labor within 24 hours of rupture (Acute) Allergy history, penicillin (Acute) BMI 37.0-37.9, adult (Acute) Medical History (Updated 01/14/22 @ 02:20 by Sherrie Kenny) Bilateral fibroadenoma's breasts Fibroadenoma of breast Frequent headaches Took magnesium daily during Surgical History Biopsy of breast 08/2013 bilateral breast fibroadenoma's [facility] [place] teeth extractions Family History (Updated 07/07/21 @ 14:29 by Jackie Fernandez CNM) Mother Diabetes GDM each x2, Obesity Hypertension depression Personal history of malignant neoplasm Father Hypertension Personal history of malignant neoplasm Brother ADHD Paternal Grandfather Cancer kidney cancer Colon cancer Maternal Aunt Breast cancer double mastectomy no radiation, confined to milk duct. 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 Date GA/Weeks # Outcome Route Wgt Sex Labor Lgth Anesthes ia Location Prov Complic 02/04/19 41 No Successful vaginal 7 lb 14 oz Female 24 regional Sommer Kenny CNM Delivery Date: 02/04/19 Last Updated by: Jackie Davalos CNM Manual OP rotation to OA, extensive lacerations repaired by MD. Huber. cervical ripening with misoprostol. DS: Data Vitals/I&O Vitals and I&O: Vital Signs Temperature 97.9 F 01/15/22 07:46 Pulse 71 01/15/22 07:46 Pulse Rhythm Regular 01/15/22 07:46 Respiratory Rate 16 01/15/22 07:46 Respiratory Depth Normal 01/14/22 09:04 Blood Pressure 121/75 01/15/22 07:46 Blood Pressure Mean 90 01/15/22 07:46 Pulse Oximetry 98 01/15/22 07:46 Oxygen Delivery Method Room Air 01/14/22 01:52 Oxygen Flow Rate 0 01/14/22 01:52 Pain Level 0 01/15/22 07:46 Comment 01/14/22 00:46 Intake & Output 01/14/22 01/14/22 01/15/22 11:59 23:59 11:59 Intake Total 700 / 700 Output Total 1755 / 1755 Balance -1055 / -1055 Intake: Oral 700 / 700 Output: Urine 1700 / 1700 Blood 55 / 55
== END 2022-01-15 10:50 | disposition home or self-care (01) | DRG 807 ==
PROVIDERS: Admitting Provider Advanced Practice Midwife; PCP Nurse Practitioner Family; Visit Provider Advanced Practice Midwife
DX: O42.02 Full-term premature rupture of membranes, onset of labor within 24 hours of rupture (principal); Z37.0 Single live birth; Z3A.39 39 weeks gestation of pregnancy; O77.0 Labor and delivery complicated by meconium in amniotic fluid; O69.81X0 Labor and delivery complicated by cord around neck, without compression, not applicable or unspecified; O70.0 First degree perineal laceration during delivery
CPT/HCPCS: 36415; 85027; 86850; 86900; 86901; 87635; J2590; J3490

== ENCOUNTER 2022-03-03 11:51 | Outpatient (REF) | payer BC, SELFPAY ==
--- NOTE | 2022-03-03 10:00 | PAPFT_PTH ---
PATIENT: Karin Nair LOC: [facility] U#:[id number] AGE/SX: 27/F ROOM: RE03/03/[address]: Sherrie Kenny CNM : 1995 BED: DIS: 03/03/2022 SPEC #: [id number] RECD: 03/03/22 12:58 STATUS: AARON RECayden #: [id number] RICARDO: 03/03/22 10:[address]: Sherrie Kenny [facility] Cytology RECD BY: Eloise Dumont ENTERED: 03/03/22 12:59 SP TYPE: PAPFT OTHR DR: Moriah Nash Tissues: 1 - CX/ENDOCX FOR PAP SMEARS Procedures: PAP THIN PREP/UVM Screening Comments: [id number]
== END 2022-03-03 11:52 | disposition home or self-care (01) ==
LOC: LBN 11:51
PROVIDERS: PCP Nurse Practitioner Family; Visit Provider Advanced Practice Midwife
DX: Z12.4 Encounter for screening for malignant neoplasm of cervix (principal)
CPT/HCPCS: 88142

== ENCOUNTER 2022-12-06 17:04 | Emergency (ER) | payer BC, SELFPAY ==
[2022-12-06 17:06] VITALS: BP 133/66; PULSE 82; RESP 20; TEMP 36.5; O2SAT 100
--- NOTE | 2022-12-06 17:30 | ED.GENADUL_ITS ---
Discharge Plan Disposition Patient Disposition: Home Discharge Details Clinical Impression: Laceration of thumb Primary Care Provider: Moriah Nash ED Provider: Eloise Dockery Home Meds and New Rx's Prescriptions: Continued norethindrone (contraceptive) 0.35 mg tablet 0.35 mg PO DAILY Qty: 84 4RF Discharge Instructions Instructions: Laceration (ED) Additional Instructions: keep dry for 24 hours do not submerge in water until sutures removed suture removed in 10-12 days return with worsening pain, fever, redness, or with any new or worsening complaints Referrals: Moriah Nash [Primary Care Provider] - Discharge Data Discharge Date/Time-TO BE ENTERED AT DEPARTURE: 12/06/22 17:42 Medical Decision Making Patient with laceration on her proximal phalanx of thumb, neurovascularly intact 1 mattress suture placed to approximate wound over flexor surface, tolerated procedure without incidence Tetanus up-to-date Bandage applied Return precautions reviewed and patient expressed understanding Medical Records Medical records reviewed: Yes I reviewed the patient's medical records. HPI General Date/Time Provider Initiated Documentation: 12/06/22 17:30 . HPI Narrative: This 27-year-old female presents with report of laceration to left thumb with a knife accidentally while cutting some scotch. Tetanus up-to-date. Denies any additional complaints including no strength or sensation change at this time Related Data Home Medications Medication Instructions Recorded Confirmed norethindrone (contraceptive) 0.35 0.35 mg PO DAILY #84 tabs 01/30/22// mg tablet Previous Rx's Medication Instructions Recorded norethindrone (contraceptive) 0.35 0.35 mg PO DAILY #84 tabs 01/30/22 mg tablet Allergies Allergy/AdvReac Type Severity Reaction Status Date / Time Penicillins Allergy Verified 03/03/22 09:41 General Stated Complaint: Laceration ZOE: 4 PFSH All Active Problems (Updated 12/06/22 @ 17:35 by ROSALEE Pollard) Laceration of thumb (Acute) Oral contraception initial prescription (Acute) care and examination of lactating mother (Acute) Allergy history, penicillin (Acute) BMI 37.0-37.9, adult (Acute) Medical History (Updated 12/06/22 @ 17:35 by ROSALEE Pollard) Bilateral fibroadenoma's breasts Fibroadenoma of breast Frequent headaches Took magnesium daily during Term delivered Surgical History Biopsy of breast 08/2013 bilateral breast fibroadenoma's [facility] [place] teeth extractions Family History (Updated 07/07/21 @ 14:29 by Jackie Fernandez CNM) Mother Diabetes GDM each x2, Obesity Hypertension depression Personal history of malignant neoplasm Father Hypertension Personal history of malignant neoplasm Brother ADHD Paternal Grandfather Cancer kidney cancer Colon cancer Maternal Aunt Breast cancer double mastectomy no radiation, confined to milk duct. 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 Date GA/Weeks # Preg Succ Route Wgt Sex Labor Lgth Anesth esia Location [facility] 02/04/19 41 No vaginal 3572.04 g Female 24 regional Bill Kenny CNM 01/14/22 40 No vaginal 3639.795 g Male 4hrs 7 min JAVY Min Delivery Date: 02/04/19 Last Updated by: Jackie Davalos CNM Manual OP rotation to OA, extensive lacerations repaired by MD. Huber. cervical ripening with misoprostol. Course Vital Signs Vital signs: Vital Signs Temperature 36.5 C 12/06/22 17:06 Pulse 82 12/06/22 17:06 Respiratory Rate 20 12/06/22 17:06 Blood Pressure 133/66 12/06/22 17:06 Pulse Oximetry 100 12/06/22 17:06 Temperature 36.5 C 12/06/22 17:06 Temperature Source Skin 12/06/22 17:06 Pulse 82 12/06/22 17:06 Respiratory Rate 20 12/06/22 17:06 Respiratory Effort Normal 12/06/22 17:15 Blood Pressure 133/66 12/06/22 17:06 Blood Pressure Position Supine 12/06/22 17:06 Pulse Oximetry 100 12/06/22 17:06 Oxygen Delivery Method Room Air 12/06/22 17:06 Oxygen Flow Rate 0 12/06/22 17:06 Pain Level 2 12/06/22 17:06 Procedures Laceration Laceration 1: Site: hand Side (If applicable): left Size (cm): 0.5 Description: linear Depth: simple, single layer Local Anesthetic: Lidocaine 1% Amount of anesthesia used (mL): 2 Pre-repair: deep structures intact Skin layer closed with: nylon Number of sutures: 1 Technique: other (vertical mattress)
== END 2022-12-06 17:42 | disposition home or self-care (01) ==
PROVIDERS: Emergency Provider Physician Assistant; PCP Nurse Practitioner Family
DX: S61.012A Laceration without foreign body of left thumb without damage to nail, initial encounter (principal); W26.0XXA Contact with knife, initial encounter
CPT/HCPCS: 12001

== ENCOUNTER 2023-06-30 08:44 | Outpatient (REF) | payer BC, SELFPAY ==
[2023-06-30 20:29] LABS: Abs Immature Grans 0.03 10^3/uL (0.0-0.06); Absolute Basophil Count 0.02 10^3/uL (0.0-0.2); Absolute Eosinophil Count 0.11 10^3/uL (0.0-0.7); Absolute Lymphocyte Count 1.21 10^3/uL (1.2-3.4); Absolute Monocyte Count 0.38 10^3/uL (0.1-0.8); Absolute Neutrophil Count 4.81 10^3/uL (1.2-6.7); Basophils % 0.3; Eosinophils % 1.7; HCT 41.5 % (36.0-46.0); HGB 13.4 g/dL (11.2-15.7); Immature Grans % 0.5; Lymphocytes % 18.4; MCHC 32.3 % (32.0-36.0); MCV 87 fL (80-95); MPV 10.1 fL (8.0-11.0); Monocytes % 5.8; Neutrophils % 73.3; Platelet Count 303 10^3/uL (130-400); RBC 4.79 10^6/uL (3.93-5.22); RDW 12.7 % (11.7-14.6); RDW-SD 39.8 fL; WBC 6.56 10^3/uL (4.4-10.8)
[2023-06-30 20:46] LABS: Hemoglobin A1C 5.3 % (<5.7)
[2023-06-30 20:52] LABS: Calculated LDL 94 mg/dL (<100); Cholesterol 148 mg/dL (<200); Ferritin 27 ng/mL (8-252); HDL Cholesterol 44 mg/dL (40-60); TSH 1.28 uIU/mL (0.36-3.74); Triglyceride 52 mg/dL (<150)
== END 2023-06-30 08:45 | disposition home or self-care (01) ==
LOC: NCHCN 08:44
PROVIDERS: PCP Nurse Practitioner Family; Visit Provider Nurse Practitioner Family
DX: R68.82 Decreased libido (principal); Z00.00 Encounter for general adult medical examination without abnormal findings
CPT/HCPCS: 80061; 82306; 82728; 83036; 84443; 85025

== ENCOUNTER 2024-06-23 14:01 | Outpatient (REF) | payer BC, SELFPAY ==
--- NOTE | 2024-06-23 13:30 | PAPFT_PTH ---
PATIENT: Karin Nair LOC: [facility] U#:[id number] AGE/SX: 29/F ROOM: RE06/23/[address]: Tiarra Auguste V : 1995 BED: DIS: 06/23/2024 SPEC #: [id number] RECD: 06/23/24 18:38 STATUS: AARON REQ #: [id number] RICARDO: 06/23/24 13:[address]: Tiarra Auguste V DEPT: [facility] Cytology RECD BY: Eloise Dumont ENTERED: 06/23/24 18:38 SP TYPE: PAPFT OTHR DR: Moriah Nash Tissues: 1 - CX/ENDOCX FOR PAP SMEARS Procedures: PAP THIN PREP/UVM Screening HPV DNA PROBE Comments: [id number] (HPV 16 & 18/45)
--- OUTSIDE RECORDS SUMMARY | 2024-06-23 14:06 | XMS_ITS | Encounter Summary ---
Author Organization [facility] [place] [address] Care Team Providers Care Data Science And Iot Manager Name Role Phone Unknown Primary Care Provider Unavailabl e Encounter Details Date Type Department Care Team (Latest Contact Info) Description 09/22/2013 9:17 AM EST - 09/22/2013 12:08 PM EST Hospital Encounter [place] [address] Eyad Benton MD [facility] [place] [address] Discharge Disposition: Home Social History Tobacco Use Types Packs/Day Years Used Date Smoking Tobacco: Never Sex and Gender Information Value Date Recorded Sex Assigned at Not on file Gender Identity Not on file Sexual Orientation Not on file documented as of this encounter Last Filed Vital Signs Vital Sign Reading Time Taken Comments Blood Pressure 112/79 09/22/2013 11:39 AM EST Pulse 94 09/22/2013 11:39 AM EST Temperature 36.1 ??C (97 ??F) 09/22/2013 11:39 AM EST Respiratory Rate 18 09/22/2013 11:39 AM EST Oxygen Saturation 99% 09/22/2013 11:39 AM EST Inhaled Oxygen Concentration - - Weight 84.4 kg (186 lb) 09/22/2013 9:31 AM EST Height 162.6 cm (5' 4) 09/22/2013 9:31 AM EST Body Mass Index 31.93 09/22/2013 9:31 AM EST documented in this encounter Discharge Instructions * Discharge Instructions* Sherrie Mcdonald I, RN - 09/22/2013 11:50 AM EST Okay to shower 24 hours Activity as tolerated Call [phone] with any questions steristrips will fall off 7-14 days Do not soak incision for 2 weeks Will call with pathology results in 5-7 days Ice pack to breast as needed Percocet 1-2 tablets every 4 hours as needed Stool softeners as needed while on percocet Okay to use ibuprofen or tylenol as needed for pain General Anesthesia Discharge Instructions Go home and rest. You may be sleepy for several hours. Take it easy as sudden position changes may cause nausea and/or dizziness. Use caution on stairs. Do not smoke if you are alone. Follow a light to regular diet as tolerated today. If nausea occurs, start with clear liquids, and progress slowly to a regular diet. Do not drive, operate machinery, drink alcoholic beverages, or make any legal decisions for 24 hours after having general anesthesia. The medications given change your reaction time and alter your judgement. IV site -- slight redness is normal, you can use warm compresses. If tenderness and redness increases or foul drainage occurs, please contact your M.D. Patients who have had endotracheal tubes/LMA (tubes used by the anesthesia staff to ensure a safe airway during your operation) may have a sore throat. This is normal and cold liquids or soothing lozengers will help ease this discomfort. Narcotic pain medications can cause constipation, please ask the surgeons office what they recommend for prevention of this. Some non-pharmaceutical means of constipation prevention include increasing intake of fluids, eating more fruits and vegetables as well as fruit juices. If you are uncomfortable and/or unable to urinate within 8 hours of discharge and it is before 5 pm, call your physician. If it is after 5pm go to the closest emergency room or call the hospital still operator whiskey at [phone] and ask for physician wagon driver salesperson covering for your doctor. Questions or problems after 5pm or on a weekend: Call the [facility] still operator whiskey at and ask for the physician wagon driver salesperson covering for your doctor. documented in this encounter Medications at Time of Discharge Medication Sig Dispensed Refills Start Date End Date Sriram BOND, 0.18/0.215/0.25 mg-35 mcg (28) tablet Take 1 tablet by mouth Daily. 05/01/2013 OXYcodone-acetaminophen (PERCOCET) 5-325 mg per tablet Take 1 tablet by mouth every 4 hours as needed for Pain. 15 tablet 0 09/22/2013 10/06/2013 acetaminophen (TYLENOL) 500 mg tablet Take 1,000 mg by mouth every 6 hours as needed. 10/06/2013 ibuprofen (ADVIL;MOTRIN) 200 mg tablet Take 200 mg by mouth every 6 hours as needed. 10/06/2013 documented as of this encounter H&P Notes * Eyad Benton MD - 09/21/2013 3:36 PM EST ID: Isidro Noonan is a 18 y.o. female presents with bilateral breast masses. HPI: Isidro Noonan is a 18 y.o. female who was found to have a new left sided breast mass by her PCP on regular clinical breast exam. The patient does not perform SBE. Pt denies any discharge, skinchanges, or pain. The patient then went for an u/s: results below. BILATERAL BREAST ULTRASOUND ON 06/16/13: DIAGNOSTIC IMAGING SUMMARY: RIGHT BREAST LESION 1: SUSPICIOUS (BIRADS Category 4). Finding: Hypoechoic, well-circumscribed mass Size: 16 x 13mm. Location: 1200, 4cm from the nipple. LEFT BREAST LESION 1: SUSPICIOUS BIRADS Category 4). Finding: Hypoechoic, well-circumscribed mass. Size: 17 x 9mm. Location: 0300, 5cm from the nipple line. TECHNIQUE: Targeted ultrasound of the Right and Left breast was performed. FINDINGS: In the Right breast at 1200, 4cm from the nipple, there is a 16 x 13mm well-circumscribed, echogenic, oval mass with gentle lobulations. On real-time scanning a thin echogenic pseudocapsule is visualized. In the Left breast there is a 17 x 9mm hypoechoic, well-circumscribed mass with gentle lobulations. On real-time scanning there is a thin echogenic pseudocapsule. Imaging characteristics are most compatiblewith fibroadenomas. 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 FH Maternal grandmother with breast cancer in her 50s Allergies Allergen Reactions ??? Penicillins Rash No current outpatient prescriptions on file prior to visit. Review of Systems: General:[-] weight change [-] fever/chills. EENT: [-] change vision [-] change hearing [-] vertigo Cardiac: [-] cp [-] SOB [-] h/o PA Pulm: [-] Dypnea [-] wheezing [-] cough GI: [-] n/v [-] diarrhea [-] constipation [-] difficulty swallowing [-] melena [-] hematechesia. [-] reflux MSK: [-] weakness [-] muscle pains Neuro: [-] weakness [-] paresthesias [-] difficulty speaking Heme: [-] hx of bleeding or clotting disorders Endo: [-] hx of DM or thyroid problems Temp: -- Heart Rate: -- Resp: -- BP: ()/() SpO2: -- Physical Exam: NAD MMM RRR CTAB Right breast with a mobile mass in the 2:30 position about 3 cm from the nipple. There are no skin changes, or discharge. Left breast with a 1.5 cm mobile mass at 3:00 position. Non-tender. no skin changes, or discharge. No cervical, supraclavicular or axillary LAD bilaterally. ABD: s/nt/nd Ext: normal warm Radiology: u/s as in HPI. i have personally reviewed the ultrasound. Assessment: Isidro Noonan is a 18ID: Isidro Noonan is a 18 y.o. female presents with bilateral breast masses. HPI: Isidro Noonan is a 18 y.o. female who was found to have a new left sided breast mass by her PCP on regular clinical breast exam. The patient does not perform SBE. Pt denies any discharge, skinchanges, or pain. The patient then went for an u/s: results below. BILATERAL BREAST ULTRASOUND ON 06/16/13: DIAGNOSTIC IMAGING SUMMARY: RIGHT BREAST LESION 1: SUSPICIOUS (BIRADS Category 4). Finding: Hypoechoic, well-circumscribed mass Size: 16 x 13mm. Location: 1200, 4cm from the nipple. LEFT BREAST LESION 1: SUSPICIOUS BIRADS Category 4). Finding: Hypoechoic, well-circumscribed mass. Size: 17 x 9mm. Location: 0300, 5cm from the nipple line. TECHNIQUE: Targeted ultrasound of the Right and Left breast was performed. FINDINGS: In the Right breast at 1200, 4cm from the nipple, there is a 16 x 13mm well-circumscribed, echogenic, oval mass with gentle lobulations. On real-time scanning a thin echogenic pseudocapsule is visualized. In the Left breast there is a 17 x 9mm hypoechoic, well-circumscribed mass with gentle lobulations. On real-time scanning there is a thin echogenic pseudocapsule. Imaging characteristics are most compatiblewith fibroadenomas. 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 FH Maternal grandmother with breast cancer in her 50s Allergies Allergen Reactions ??? Penicillins Rash No current outpatient prescriptions on file prior to visit. Review of Systems: General:[-] weight change [-] fever/chills. EENT: [-] change vision [-] change hearing [-] vertigo Cardiac: [-] cp [-] SOB [-] h/o PA Pulm: [-] Dypnea [-] wheezing [-] cough GI: [-] n/v [-] diarrhea [-] constipation [-] difficulty swallowing [-] melena [-] hematechesia. [-] reflux MSK: [-] weakness [-] muscle pains Neuro: [-] weakness [-] paresthesias [-] difficulty speaking Heme: [-] hx of bleeding or clotting disorders Endo: [-] hx of DM or thyroid problems Temp: -- Heart Rate: -- Resp: -- BP: ()/() SpO2: -- Physical Exam: NAD MMM RRR CTAB Right breast with a mobile mass in the 2:30 position about 3 cm from the nipple. There are no skin changes, or discharge. Left breast with a 1.5 cm mobile mass at 3:00 position. Non-tender. no skin changes, or discharge. No cervical, supraclavicular or axillary LAD bilaterally. ABD: s/nt/nd Ext: normal warm Radiology: u/s as in HPI. i have personally reviewed the ultrasound. Assessment: Isidro Noonan is a 18 y.o. female with non-tender, mobile, Bilateral breast masses that are consistent with fibroadenomas on ultrasound. Plan: Given the small size, u/s characteristics, and the patient's age, these findings are most consistent with fibroadenomas. These are category IV on u/s and warrant a tissue diagnosis. The patient favors bilateral excisional biopsies over core bxs. We will arrange for this during her next break. Consent obtained. ADDENDUM I was present for the entirety of the visit as documented above and I performed the physical exam..I have edited the note for content. I agree with findings as above. Plan to proceed with excision of breast masses- suspected fibroadenoma. ID: Isidro Noonan is a 18 y.o. female presents with bilateral breast masses. HPI: Isidro Noonan is a 18 y.o. female who was found to have a new left sided breast mass by her PCP on regular clinical breast exam. The patient does not perform SBE. Pt denies any discharge, skinchanges, or pain. The patient then went for an u/s: results below. BILATERAL BREAST ULTRASOUND ON 06/16/13: DIAGNOSTIC IMAGING SUMMARY: RIGHT BREAST LESION 1: SUSPICIOUS (BIRADS Category 4). Finding: Hypoechoic, well-circumscribed mass Size: 16 x 13mm. Location: 1200, 4cm from the nipple. LEFT BREAST LESION 1: SUSPICIOUS BIRADS Category 4). Finding: Hypoechoic, well-circumscribed mass. Size: 17 x 9mm. Location: 0300, 5cm from the nipple line. TECHNIQUE: Targeted ultrasound of the Right and Left breast was performed. FINDINGS: In the Right breast at 1200, 4cm from the nipple, there is a 16 x 13mm well-circumscribed, echogenic, oval mass with gentle lobulations. On real-time scanning a thin echogenic pseudocapsule is visualized. In the Left breast there is a 17 x 9mm hypoechoic, well-circumscribed mass with gentle lobulations. On real-time scanning there is a thin echogenic pseudocapsule. Imaging characteristics are most compatiblewith fibroadenomas. 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 FH Maternal grandmother with breast cancer in her 50s Allergies Allergen Reactions ??? Penicillins Rash No current outpatient prescriptions on file prior to visit. Review of Systems: General:[-] weight change [-] fever/chills. EENT: [-] change vision [-] change hearing [-] vertigo Cardiac: [-] cp [-] SOB [-] h/o PA Pulm: [-] Dypnea [-] wheezing [-] cough GI: [-] n/v [-] diarrhea [-] constipation [-] difficulty swallowing [-] melena [-] hematechesia. [-] reflux MSK: [-] weakness [-] muscle pains Neuro: [-] weakness [-] paresthesias [-] difficulty speaking Heme: [-] hx of bleeding or clotting disorders Endo: [-] hx of DM or thyroid problems Temp: -- Heart Rate: -- Resp: -- BP: ()/() SpO2: -- Physical Exam: NAD MMM RRR CTAB Right breast with a mobile mass in the 2:30 position about 3 cm from the nipple. There are no skin changes, or discharge. Left breast with a 1.5 cm mobile mass at 3:00 position. Non-tender. no skin changes, or discharge. No cervical, supraclavicular or axillary LAD bilaterally. ABD: s/nt/nd Ext: normal warm Radiology: u/s as in HPI. i have personally reviewed the ultrasound. Assessment: Isidro Noonan is a 18 y.o. female with non-tender, mobile, Bilateral breast masses that are consistent with fibroadenomas on ultrasound. Plan: Given the small size, u/s characteristics, and the patient's age, these findings are most consistent with fibroadenomas. These are category IV on u/s and warrant a tissue diagnosis. The patient favors bilateral excisional biopsies over core bxs. We will arrange for this during her next break. Consent obtained. ADDENDUM I was present for the entirety of the visit as documented above and I performed the physical exam..I have edited the note for content. I agree with findings as above. Plan to proceed with excision of breast masses- suspected fibroadenoma. y.o. female with non-tender, mobile, Bilateral breast masses that are consistent with fibroadenomason ultrasound. Plan: Given the small size, u/s characteristics, and the patient's age, these findings are most consistent with fibroadenomas. These are category IV on u/s and warrant a tissue diagnosis. The patient favors bilateral excisional biopsies over core bxs. We will arrange for this during her next break. Consent obtained. stable for OR documented in this encounter Miscellaneous Notes * Op Note - Eyad Benton MD - 09/22/2013 11:33 AM EST [facility] Operative Note Patient Name: Isidro Noonan : [id number] MR#: [id number] Case Date: 09/22/2013 Surgeon: Surgeon(s) and Role: * Eyad Benton MD - Primary * Eren Vu MD - Resident-Surgeon Gabo Preoperative diagnosis: BILATERAL BREAST MASSES Postoperative diagnosis: BILATERAL BREAST MASSES Procedure(s): EXCISION CYST, FIBROADENOMA, ABBERANT BREAST TISSUE,DUCT LESION,NIPPLE OR AREOLAR LESION (LUMPECTOMY)-NELI General Estimated Blood Loss: 3cc Disposition: awakened from anesthesia, extubated and taken to the recovery room in a stable condition, having suffered no apparent untoward event. Condition: doing well without problems (Please see the Surgical Encounter Summary for any Implant and Specimen details pertinent to this patient.) HPI/Surgical Indications: 18 yo female with bilateral breast masses (RIght at 12:00, left at 3:00).Plan excisional biopsies of likely fibroadenomas Procedure Description: After confirming the lesions with the patient in the holding area, Isidro was brought to the OR and positioned supine. Sedatives were administered intravenously and an LMA was placed. The breasts were prepped and draped in sterile fashion. Time out confirmed the patient's identity and surgical sites.No prophylactic antibiotics were indicated. On the right, superior periareolar incision was made after injection of local anesthetic. The palpable mass was excised through this incision. This wassent to pathology for permanent section. The wound was irrigated, hemostased and closed. In identical fashion, local anesthesia was injected in the left breast at 3:00. Here, a radial incision was made and the palpable mass was excised. This too was sent for permanent pathology. Hemostasis was achieved. The wound was irrigated and closed in layers. * OR Attestation - Eyad Benton MD - 09/22/2013 11:33 AM EST Attestation: Case Date: 09/22/2013 I was present and I participated during the entire procedure (does not need to include opening and closing). EYAD BENTON MD 09/22/2013 * Miscellaneous - Provider, Scanning - 09/22/2013 9:22 AM EST documented in this encounter Plan of Treatment Not on file documented as of this encounter Procedures Procedure Name Priority Date/Time Associated Diagnosis Comments SURGICAL PATHOLOGY REPORT Routine 09/22/2013 11:55 AM EST SPECIMEN TO PATHOLOGY Routine 09/22/2013 11:21 AM EST SPECIMEN TO PATHOLOGY Routine 09/22/2013 11:21 AM EST EXCISION CYST, FIBROADENOMA, ABBERANT BREAST TISSUE,DUCT LESION,NIPPLE OR AREOLAR LESION (LUMPECTOMY)-NELI (WRVU 5.92) Yes 09/22/2013 10:46 AM EST BILATERAL BREAST MASSES documented in this encounter Results * Surgical Pathology Report (09/22/2013 11:55 AM EST) Surgical Pathology Report ? [facility] ? Provider: ?? EYAD BENTON ??Pt. Name: ?? ISIDRO NOONAN ? Acc #: ?[id number] ?Pt. ? Col Date: ?? 09/22/2013 ?/Sex: ?1995,(18 years),Female ? Rec Date: ?? 09/22/2013 ?LOC: ?[facility] ? SURGICAL PATHOLOGY ? ---Pathologic Diagnosis--- ? A - Right breast mass, 12 o'clock, excision: ? Fibroadenoma (1.5 cm) ? B - Left breast mass, 3 o'clock, excision: ? Fibroadenoma (1.5 cm) and focal fibroadenomatous change ? CR-0 ? 09/25/13 ? KRYSTLE ? 09/25/13 Verified by: ? Claudia LIZARRAGA, Dorian Matos ? Pathologist ? (Electronic Signature) ? The attending pathologist whose signature appears on this report has ? reviewed all diagnostic slides and has edited the gross and/or ? microscopic portion of the report in rendering the final pathologic ? diagnosis. ? ---Gross Description--- ? A - Labeled/Fixative: Right breast mass 12 o'clock, fresh. ? Quantity/Size: Single, 3.0 x 1.8 x 1.7 cm, 6 g. ? Tissue Description: Bosselated yellow pink fibrofatty mass. Sectioning ? reveals a 1.5 cm in diameter mendez-white friable nodule surrounded by ? fibrofatty breast tissue. ? Sections/Processing : Stacker Attendant sections are submitted. (R5) ? B - Labeled/Fixative: Left breast mass 3 o'clock, fresh. ? Quantity/Size: Single, 3.3 x 2.5 x 1.5 cm. ? Tissue Description: Partially fragmented fibrofatty mass. Sectioning ? reveals a 1.5 cm well-circumscribed pink-white nodular lesion surrounded by ? blanca-yellow lobular fatty tissue. There is a second 0.7 cm well- ? circumscribed pink-blanca nodule identified within the fat. ? Sections/Processing : Stacker Attendant sections of main lesion in B1-B4; ? second nodule in B5 (R5) ??ejr ? ---Clinical Information--- ? Specimen Submitted: ? A - Right breast mass 12 o'clock ? B - Left breast mass 3 o'clock ? Clinical History: ? [facility] ? Provider: ?? EYAD BENTON ??Pt. Name: ?? ISIDRO NOONAN ? Acc #: ?[id number] ?Pt. ? Col Date: ?? 09/22/2013 ?/Sex: ?1995,(18 years),Female ? Rec Date: ?? 09/22/2013 ?LOC: ?[facility] ? SURGICAL PATHOLOGY ? Bilateral breast masses ? Clinical Diagnosis: ? Same MARGIE FINLEY 09/22/2013 11:5 5 AM EST Eyad Benton MD PATHOLOGY/CYTOLOGY ORDERABLES Performing Organization Address City/State/[facility] Co de Phone Number MARGEI FINLEY * Specimen to Pathology (surgical or derm) (09/22/2013 11:21 AM EST) AP Specimen 09/22/2013 11:2 1 AM EST 09/22/2013 11:21 AM EST Narrative MARGIE FINLEY - 09/22/2013 11:21 AM EST Specimen requisition ordered. ??Separate Pathology report to follow Eyad Benton MD PATHOLOGY/CYTOLOGY ORDERABLES Performing Organization Address City/[facility] Co de Phone Number MARGIE FINLEY * Specimen to Pathology (surgical or derm) (09/22/2013 11:21 AM EST) AP Specimen 09/22/2013 11:2 1 AM EST 09/22/2013 11:21 AM EST Narrative MARGIE FINLEY - 09/22/2013 11:21 AM EST Specimen requisition ordered. ??Separate Pathology report to follow Eyad Benton MD PATHOLOGY/CYTOLOGY ORDERABLES Performing Organization Address [facility] Co de Phone Number MARGIE FINLEY documented in this encounter Visit Diagnoses Not on filedocumented in this encounter Active and Recently Administered Medications Times are shown in EST. PRN Medication Order 09/20/2013 09/21/2013 09/22/2013 BUpivacaine (PF) (MARCAINE) 0.5 % (5 mg/mL) injection (CANCELED) ONCE PRN, Starting on Wed09/22/13 at 1110, Until Wed09/22/13 at 1500, Intra-Operative (Intra-Procedure), Routine 1110 (Given - Provid er: Eyad Benton MD - Comment: mixed 1:1 with 1% Lidocaine) lidocaine (PF) (XYLOCAINE) 10 mg/mL (1 %) injection (CANCELED) ONCE PRN, Starting on Wed09/22/13 at 1110, Until Wed09/22/13 at 1500, Intra-Operative (Intra-Procedure), Routine 1110 (Given - Provid er: Eyad Benton MD) documented in this encounter Care Teams Data Science And Iot Manager Relationship Specialty Start Date End Date Unknown None PCP - General 07/06/13 10/05/13 documented as of this encounter
--- OUTSIDE RECORDS SUMMARY | 2024-06-23 14:06 | XMS_ITS | Clinical Summary ---
Author Organization [facility] Address [facility] [place] [address] Care Team Providers Care Display Specialist Name Role Phone Unknown Primary Care Provider Unavailabl e Allergies Active Allergy Reactions Criticality Noted Date Comments Penicillins Rash 06/16/2013 Medications Medication Sig Dispensed Refills Start Date End Date Status TRINESSA, 28, 0.18/0.215/0.25 mg-35 mcg (28) tablet Take 1 tablet by mouth Daily. 05/01/2013 Active Active Problems Problem Noted Date Diagnosed Date Pain in right wrist 07/02/2014 Breast mass 06/16/2013 Family History Medical History Relation Comments Cancer Maternal Grandmother Diabetes Paternal Grandfather Relation Status Comments Maternal Grandmother Paternal Grandfather Social History Tobacco Use Types Packs/Day Years Used Date Smoking Tobacco: Never Smokeless Tobacco: Never Alcohol Use Standard Drinks/Week Comments Yes 0 (1 standard drink = 0.6 oz pur e alcohol) social Sex and Gender Information Value Date Recorded Sex Assigned at Not on file Gender Identity Not on file Sexual Orientation Not on file Last Filed Vital Signs Vital Sign Reading Time Taken Comments Blood Pressure 124/76 07/30/2014 2:55 PM EST Pulse 79 07/30/2014 2:55 PM EST Temperature 36.1 ??C (97 ??F) 09/22/2013 11:39 AM EST Respiratory Rate 18 09/22/2013 11:39 AM EST Oxygen Saturation 99% 09/22/2013 11:39 AM EST Inhaled Oxygen Concentration - - Weight 86.2 kg (190 lb) 07/30/2014 2:55 PM EST s tated Height 165.1 cm (5' 5) 07/30/2014 2:55 PM EST s tated Body Mass Index 31.62 07/30/2014 2:55 PM EST Plan of Treatment Health Maintenance Due Date Last Done Comments HIV screen 2011 Hepatitis C Screening 2011 Hepatitis B vaccine (0-59 yrs) (1) 01/14/2012 Tdap adult (Retired) 01/14/2012 Tetanus vaccine (Retired) 01/14/2012 HPV test 2023 PAP Smear 2023 Covid-19 Vaccine (1 - 2022-24 season) 2024 Influenza (Flu) vaccine (1 o f 1 - Influenza standard series) 05/28/2024 Advance Directives * Full Code (Latest Code Status on File) Date Activated Date Inactivated Comments 09/22/2013 9:27 AM 09/22/2013 3:00 PM Question Answer Comments Does patient have decision m aking capacity? Yes, order is based on Patient wishes. Care Teams Display Specialist Relationship Specialty Start Date End Date Unknown None PCP - General 04/01/21
--- OUTSIDE RECORDS SUMMARY | 2024-06-23 14:06 | XMS_ITS | Encounter Summary ---
[place] [address] Care Team Providers Care Front Desk Worker Name Role Phone Unknown Primary Care Provider Unavailabl e Reason for Referral * Allergy Testing (Routine) - Closed Specialty Diagnoses / Procedures Referred By Renate zuleta Referred To Contact Allergy Diagnoses Personal history of penicillin allergy Sherrie Kenny CNM [address] [place] [address] [address] [place] [address] [facility] [address] [place] [address] Referral ID Status Reason Start Date Expiration Date V isits Requested Visits Authorized [id number] Closed Consult, Test & Treat PCP Updated and/or Approved 03/14/2022 03/14/2023 6 6 Encounter Details Date Type Department Care Team (Late st Contact Info) Description 03/14/2022 Transcribe Orders eDH Incoming Referrals [phone] Sherrie Kenny CNM [address] [place] [address] [address] [place], [place] [phone] Personal history of penicillin allergy Social History Tobacco Use Types Packs/Day Years Used Date Smoking Tobacco: Never Assessed Sex and Gender Information Value Date Recorded Sex Assigned at Not on file Gender Identity Not on file Sexual Orientation Not on file documented as of this encounter Plan of Treatment Scheduled Referrals Name Type Priority Associated Diagnoses Orde r Schedule Referral to Allergy Outpatient Referral Routine Personal history of penicillin allergy Ordered: 03/14/2022 documented as of this encounter Visit Diagnoses Diagnosis Personal history of penicillin allergy Personal history of allergy to penicillin documented in this encounter Care Teams Front Desk Worker Relationship Specialty Start Date End Date Unknown None PCP - General 04/01/21 documented as of this encounter
--- OUTSIDE RECORDS SUMMARY | 2024-06-23 14:06 | XMS_ITS | Encounter Summary ---
Author Organization [facility] Address [facility] [place] [address] Care Team Providers Care Branch Service Associate Name Role Phone Unknown Primary Care Provider Unavailabl e Encounter Details Date Type Department Care Team (Late st Contact Info) Description 07/06/2013 2:15 PM EDT Office Visit H[place] [address] [facility] [place] [address] Breast mass (Primary Dx) Discharge Disposition: Home Social History Tobacco Use Types Packs/Day Years Used Date Smoking Tobacco: Never Sex and Gender Information Value Date Recorded Sex Assigned at Not on file Gender Identity Not on file Sexual Orientation Not on file documented as of this encounter Last Filed Vital Signs Vital Sign Reading Time Taken Comments Blood Pressure 126/60 07/06/2013 2:20 PM EDT Pulse 87 07/06/2013 2:20 PM EDT Temperature 36.7 ??C (98.1 ??F) 07/06/2013 2:20 PM ED T Respiratory Rate 16 07/06/2013 2:20 PM EDT Oxygen Saturation - - Inhaled Oxygen Concentration - - Weight 84.7 kg (186 lb 11.7 oz) 07/06/2013 2:20 PM EDT Height 164 cm (5' 4.57) 07/06/2013 2:20 PM EDT Body Mass Index 31.49 07/06/2013 2:20 PM EDT documented in this encounter Progress Notes * Pablo Caro MD - 07/06/2013 2:01 PM EDT General Surgery Note ID: Karin Gonzalez is a 18 y.o. female presents with bilateral breast masses. HPI: Karin Gonzalez is a 18 y.o. female who was [...] fibroadenomas. 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 Non smoker. FH Maternal grandmother with breast cancer in her 50s Allergies Allergen Reactions ??? Penicillins Rash No current outpatient prescriptions on file prior to visit. Review of Systems: General:[-] weight change [-] fever/chills. EENT: [-] change vision [-] change hearing [-] vertigo Cardiac: [-] cp [-] SOB [-] h/o [place] Pulm: [-] Dypnea [-] wheezing [-] cough [...] i have personally reviewed the ultrasound. Assessment: Karin Gonzalez is a 18 y.o. female with non-tender, [...] with excision of breast masses- suspected fibroadenoma. EYAD BENTON documented in this encounter Plan of Treatment Not on file documented as of this encounter Visit Diagnoses Diagnosis Breast mass- Primary Lump or mass in breast documented in this encounter Care Teams Branch Service Associate Relationship Specialty Start Date End Date Unknown None PCP - General 07/06/13 10/05/13 documented as of this encounter
--- OUTSIDE RECORDS SUMMARY | 2024-06-23 14:06 | XMS_ITS | Encounter Summary ---
Author Organization [facility] [place] [address] Care Team Providers Care Decorative Engraver Apprentice Name Role Phone Jose Del Real MD Primary Care Provider [phone] Reason for Visit * Reason Comments Follow-up Encounter Details Date Type Department Care Team (Latest Contact Info) Description 10/06/2013 11:00 AM EST Clinical Support [place] [phone] NURSE, GENERAL SURGERY Fibroadenoma of breast, left (Primary Dx); Fibroadenoma of breast, right Discharge Disposition: Home Social History Tobacco Use Types Packs/Day Years Used Date Smoking Tobacco: Never Sex and Gender Information Value Date Recorded Sex Assigned at Not on file Gender Identity Not on file Sexual Orientation Not on file documented as of this encounter Progress Notes * Nita Sharpe RN - 10/06/2013 11:03 AM EST Ms. Gonzalez is s/p excision of bilateral fibroadenomas with Dr. Benton on 09/22/13. She was scheduled for her HCK with Maryellen Moreland APRN today, but unfortunately Maryellen was unable to see her. Pt reports that she is doing very well, only took a couple tylenol for pain the first day, has no concerns. She is returning to college this weekend and just wanted to be sure she is healing appropriately prior to that. On exam, her bilateral breast incisions are nicely healed. No s/s of infection, no swelling, no bruising. Her only residual tenderness is at the bottom edge of her breast, where I cannot see or feel anything concerning. Pt will f/u as previously scheduled and will call with any questions or concerns. She agrees with the plan. documented in this encounter Plan of Treatment Not on file documented as of this encounter Visit Diagnoses Diagnosis Fibroadenoma of breast, left- Primary Fibroadenoma of breast, right documented in this encounter Care Teams Decorative Engraver Apprentice Relationship Specialty Start Date End Date Jose Del Real MD [address] [place] [address] PCP - General 10/06/13 05/07/14 documented as of this encounter
--- OUTSIDE RECORDS SUMMARY | 2024-06-23 14:06 | XMS_ITS | Encounter Summary ---
Author Organization [facility] Address [facility] [place] [address] Care Team Providers Care Cardiology Coordinator Name Role Phone Vinicio Hauser Primary Care Provider [phone] Reason for Visit * Reason Comments Right Wrist Pain Encounter Details Date Type Department Care Team (Late st Contact Info) Description 07/30/2014 3:10 PM EST Office [place] [phone] Tucker Boudreaux MD [facility] [place] [address] Pain in right wrist Discharge Disposition: Home Social History Tobacco Use [...] Pulse 79 07/30/2014 2:55 PM EST Temperature - - Respiratory Rate - - Oxygen Saturation - - Inhaled Oxygen Concentration - - Weight 86.2 kg (190 lb) 07/30/2014 2:55 PM EST s tated Height 165.1 cm (5' 5) 07/30/2014 2:55 PM EST s tated Body Mass Index 31.62 07/30/2014 2:55 PM EST documented in this encounter Progress Notes * Gretta Goodrich PA - 07/30/2014 3:44 PM EST PATIENT NAME: Karin Gonzalez AGE: 19 y.o. MR#: [id number] DATE OF VISIT: 07/30/2014 DATE OF INJURY/ONSET: Chronic STAFF: Dr. Boudreaux CHIEF COMPLAINT: follow up for right wrist pain HISTORY OF PRESENT ILLNESS: Ms. Gonzalez is a 19 y.o. year old female who comes into clinic today for follow up regarding the right wrist. She was last evaluated by Dr. Boudreaux. She has had dorsal wrist pain on and off for several years. She cannot recall any recent trauma to the wrist. She reportsa history of a wrist fracture as a child, but has otherwise not had any major wrist injuries. Her pain is mostly over the SL interval and there was some concern for an occult ganglion cyst versus other structural abnormality. She presents after having an MRI of her wrist. She states she is currently asymptomatic. She has times where she will have quite severe wrist pain, however, and this often interferes with activity. PHYSICAL EXAM: Ms. Gonzalez is alert and oriented. She appears in no acute discomfort and is resting comfortably in the exam room. Inspection: No erythema, ecchymosis, or swelling involving the patient's right wrist. Palpation: She has no focal tenderness to palpation on exam today. There are no palpable cystic lesions. ROM/Strength: She is intact finger and wrist range of motion with no discomfort. No intrinsic atrophy is noted. Orthopedic testing: No evidence of midcarpal instability. Negative Albert test. Negative shuck test. DRUJ remained stable. Neurovascular: Normal motor function of the radial, median, and ulnar nerves. Normal sensation along radial, median, and ulnar nerve distributions. Good hand perfusion. RADIOLOGICAL STUDIES: Per MRI report: 1. Small 4 x 2 x 3 mm ganglion cyst along the dorsal wrist joint immediately overlying the dorsal band of the scapholunate ligament. 2. No tear of the scapholunate ligament is identified. 3. Approximately 4 x 8 x 10 mm multiloculated probable synovial ganglion cyst emanating from the volar radial wrist joint capsule. 4. No accessory muscles identified. ASSESSMENT: Right wrist dorsal ganglion cyst adjacent to the SL ligament, asymptomatic volar ganglion cyst PLAN: Dr. Boudreaux also evaluated and spoke with the patient at today's visit. I reviewed the MRI findings with the patient today. It appears as though she does have a small ganglion cyst in the location of her wrist pain. Incidentally, she also has evidence of a volar radial ganglion cyst which remains asymptomatic. We discussed that surgical exploration with cyst excision could be considered in t he event that her symptoms become more problematic. The cyst is so small that it is difficult to determine whether or not this would be easily identifiable at the time of surgery. It would certainly be reasonable to continue to manage her symptoms as needed with activity modification and splinting.No additional structure abnormalities were identified on exam or imaging. She is going to try usinga wrist brace as needed for comfort. She will followup with us as needed if her symptoms worsen or fail to improve. The patient understands to contact us if they have any other questions or concerns. The above documentation was completed using [employer] voice recognition software. documented in this encounter Plan of Treatment Not on file documented as of this encounter Visit Diagnoses Diagnosis Pain in right wrist Pain in joint, forearm documented in this encounter Care Teams Cardiology Coordinator Relationship Specialty Start Date End Date Vinicio Hauser PA [address] [place] [address] PCP - General 05/08/14 03/31/21 documented as of this encounter
--- OUTSIDE RECORDS SUMMARY | 2024-06-23 14:06 | XMS_ITS | Encounter Summary ---
[place] [address] Care Team Providers Care Bottom Ironer Name Role Phone Randal Monk Primary Care Provider [phone] Reason for Visit * Reason Onset Date Comments Referral 05/15/2014 Encounter Details Date Type Department Care Team (Late st Contact Info) Description 05/15/2014 [place] [phone] Juanita Tai Referral Social History Tobacco Use Types Packs/Day Years Used Date Smoking Tobacco: Never Sex and Gender Information Value Date Recorded Sex Assigned at Not on file Gender Identity Not on file Sexual Orientation Not on file documented as of this encounter Miscellaneous Notes * Telephone Encounter - Juanita Roman - 05/15/2014 1:26 PM EDT Ask patient to verify the following: Full name: Karin Gonzalez : 1995 Phone number: [phone] (home) Mailing address: [address] [address] AGE: 19 y.o. REASON FOR APPOINTMENT: R WRIST PAIN - POSSIBLE SCAPHOID-LUNATE DISOCIATION How long have you had these symptoms? (days, weeks, months, years) Is this WORKERS COMP? If YES ? SINCE CHILDHOOD - POPPED WRIST BONE OUT OF PLACE WHEN A CHILD- WORE BRACE FOR CORRECTION DOI: Records Retrieval What? When? (m/d/y) Where? (facility) Who? Notes: Checklist Physical exam w/in last year? 05/03/14 [facility] RANDAL MONK X-rays NO MRI CT Scan Physical Therapy Injection Other diagnostic studies Other therapies Other Specialist(s) If 2nd (+) opinion get info on previous; book with MD only ? Have you had any surgeries for this issue? NO Operative report Did surgery include placement of implant/hardware or fixation of any kind? Implant stickers documented in this encounter Plan of Treatment Not on file documented as of this encounter Visit Diagnoses Not on filedocumented in this encounter Care Teams Bottom Ironer Relationship Specialty Start Date End Date Randal Monk PA [address] [place] [address] PCP - General 05/08/14 03/31/21 documented as of this encounter
--- OUTSIDE RECORDS SUMMARY | 2024-06-23 14:06 | XMS_ITS | Encounter Summary ---
Author Organization [facility] [place] [address] Care Team Providers Care Personal Care Aid Name Role Phone Gt Thomas MD, Mark Primary Care Provider [phone] Reason for Visit * Reason Comments Breast Mass Encounter Details Date Type Department Care Team (Late st Contact Info) Description 06/16/2013 11:15 AM EDT Office Visit [place] [phone] America Moreland APRN [facility] [place] [address] Breast mass (Primary Dx) Discharge Disposition: Home Social History Tobacco Use Types Packs/Day Years Used Date Smoking Tobacco: Never Sex and Gender Information Value Date Recorded Sex Assigned at Not on file Gender Identity Not on file Sexual Orientation Not on file documented as of this encounter Last Filed Vital Signs Vital Sign Reading Time Taken Comments Blood Pressure 117/62 06/16/2013 11:15 AM EDT Pulse 70 06/16/2013 11:15 AM EDT Temperature - - Respiratory Rate 16 06/16/2013 11:15 AM EDT Oxygen Saturation 98% 06/16/2013 11:15 AM EDT Inhaled Oxygen Concentration - - Weight 84.5 kg (186 lb 4.6 oz) 06/16/2013 11:15 AM EDT Height 164 cm (5' 4.57) 06/16/2013 11:15 AM EDT Body Mass Index 31.42 06/16/2013 11:15 AM EDT documented in this encounter Progress Notes * America Moreland APRN - 06/16/2013 11:24 AM EDT Ms. Gonzalez is a 18 y.o. year-old patient who I am seeing at the request of Jena Herron APRN to evaluate a mass in the left breast at 0300. She denies any skin changes, breast trauma, prior breast surgery or nipple discharge. She is scheduled for breast imaging later today. She does not have a history of cystic breast tissue and has not had cysts aspirated or breast biopsies in the past. She does not do regular self-breast exams. Weight stable but she lost 50 lbs when she was a senior in high school. She has no new or concerning complaints of fatigue, cardiovascular or respiratory symptoms. All other ROS are negative. Reproductive History: G0 Menarche began at 13.Her LMP was 3 weeks ago. HRT/OC: OCP Family History: Negative for ovarian cancer. Positive for breast cancer:maternal grandmother Social History: She is a [place]. She does not smoke. Past Medical History: Noncontributory. Past Surgical History: Noncontributory Physical Exam: She looks well and is in no apparent distress. Her skin is anicteric with good turgor. Sclera are anicteric. Her head and neck are without masses or adenopathy. Her arms have good ROM without any evidence of lymphedema. Her breasts are symmetric. Her nipples are everted. There is no axillary adenopathy on the right or the left. There are no skin changes or dimpling noted in either breast. The left breast is notable for generally homogenous heterogenous breast tissue,without a discrete mass at 0300. Her right breast exam is similar in character to her left Breast,with an area of firm focal nodularity vs mass at 1200. Assessment: Clinical breast exam notable for fibrocystic breast tissue With a discrete mass in the left breast,most likely representing a fibroadenoma. Right breast mass may be an FA,focal fibrosis or FCD. Will correlate with imaging. Plan: I have discussed my assessment and recommendations with Ms. Gonzalezand will call her after her focused US . Surgical follow up based on outcome of imaging. Ms. Gonzalez agrees to this plan. MONSE NICOLE MD documented in this encounter Plan of Treatment Not on file documented as of this encounter Visit Diagnoses Diagnosis Breast mass- Primary Lump or mass in breast documented in this encounter Care Teams Personal Care Aid Relationship Specialty Start Date End Date Monse Nicole MD [address] [place] [address] PCP - General 08/19/10 07/05/13 documented as of this encounter
--- OUTSIDE RECORDS SUMMARY | 2024-06-23 14:06 | XMS_ITS | Encounter Summary ---
Author Organization [facility] [place] [address] Care Team Providers Care Snath Handle Assembler Name Role Phone Unknown Primary Care Provider Unavailabl e Encounter Details Date Type Department Care Team (Late st Contact Info) Description 09/22/2013 10:30 AM EST - 09/22/2013 12:15 PM EST Surgery [facility] [place] [address] Eyad Benton MD [facility] [place] [address] EXCISION CYST, FIBROADENOMA, ABBERANT BREAST TISSUE,DUCT LESION,NIPPLE OR AREOLAR LESION (LUMPECTOMY)-NELI (WRVU 5.92) Social History Tobacco Use Types Packs/Day Years [...] shower 24 hours Activity as tolerated Call [phone] with any questions steristrips will fall off [...] closest emergency room or call the hospital stand up forklift operator at [phone] and ask for physician customer service professional covering for your doctor. Questions or problems after 5pm or on a weekend: Call the [facility] stand up forklift operator at and ask for the physician customer service professional covering for your doctor. documented in this encounter Medications at Time of Discharge Medication Sig Dispensed Refills Start Date End Date VARUN 28, 0.18/0.215/0.25 mg-35 mcg (28) tablet Take [...] fibroadenomas. 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 Non smoker. FH Maternal grandmother with breast cancer in her 50s Allergies Allergen Reactions ??? Penicillins Rash No current outpatient prescriptions on file prior to visit. Review of Systems: General:[-] weight change [-] fever/chills. EENT: [-] change vision [-] change hearing [-] vertigo Cardiac: [-] cp [-] SOB [-] h/o OK Pulm: [-] Dypnea [-] wheezing [-] cough [...] fibroadenomas. 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 Non smoker. FH Maternal grandmother with breast cancer in her 50s Allergies Allergen Reactions ??? Penicillins Rash No current outpatient prescriptions on file prior to visit. Review of Systems: General:[-] weight change [-] fever/chills. EENT: [-] change vision [-] change hearing [-] vertigo Cardiac: [-] cp [-] SOB [-] h/o [place] Pulm: [-] Dypnea [-] wheezing [-] cough [...] fibroadenomas. 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 Non smoker. FH Maternal grandmother with breast cancer in her 50s Allergies Allergen Reactions ??? Penicillins Rash No current outpatient prescriptions on file prior to visit. Review of Systems: General:[-] weight change [-] fever/chills. EENT: [-] change vision [-] change hearing [-] vertigo Cardiac: [-] cp [-] SOB [-] h/o OK Pulm: [-] Dypnea [-] wheezing [-] cough [...] Benton MD - 09/22/2013 11:33 AM EST [facility] [place] Patient Name: Isidro Noonan : [id number] MR#: [id number] Case Date: 09/22/2013 Surgeon: Surgeon(s) and Role: * Eyad Benton MD - Primary * Erne Vu MD - Resident-Surgeon [place] Preoperative diagnosis: [...] 11:55 AM EST) Surgical Pathology Report ? [facility] ? Provider: ?? EYAD BENTON ??Pt. Name: ?? ISIDRO NOONAN ? Acc #: ?[id number] ?Pt. ? Col Date: ?? 09/22/2013 ?/Sex: [...] ? fibrofatty breast tissue. ? Sections/Processing : Repairer Finished Metal sections are submitted. (R5) ? B - [...] identified within the fat. ? Sections/Processing : Repairer Finished Metal sections of main lesion in B1-B4; ? second nodule in B5 (R5) ??ejr ? ---Clinical Information--- ? Specimen Submitted: ? A - Right breast mass 12 o'clock ? B - Left breast mass 3 o'clock ? Clinical History: ? [facility] ? Provider: ?? EYAD BENTON ??Pt. Name: ?? ISIDRO NOONAN ? Acc #: ?[id number] ?Pt. ? Col Date: ?? 09/22/2013 ?/Sex: ?1995,(18 years),Female ? Rec Date: ?? 09/22/2013 ?LOC: ?[facility] ? SURGICAL PATHOLOGY ? Bilateral breast masses ? Clinical Diagnosis: ? Same [facility] 09/22/2013 11:5 5 AM EST Eyad Benton MD PATHOLOGY/CYTOLOGY ORDERABLES Performing Organization Address [facility]/ZIP Co de Phone Number MARGIE FINLEY * Specimen to Pathology (surgical or derm) (09/22/2013 11:21 AM EST) AP Specimen 09/22/2013 11:2 1 AM EST 09/22/2013 11:21 AM EST Narrative MARGIE FINLEY - 09/22/2013 11:21 AM EST Specimen requisition ordered. ??Separate Pathology report to follow Eyad Benton MD PATHOLOGY/CYTOLOGY ORDERABLES Performing Organization Address [facility] Co de Phone Number MARGIE FINLEY * Specimen to Pathology (surgical or derm) (09/22/2013 11:21 AM EST) AP Specimen 09/22/2013 11:2 1 AM EST 09/22/2013 11:21 AM EST Narrative MARGIE FINLEY - 09/22/2013 11:21 AM EST Specimen requisition ordered. ??Separate Pathology report to follow Eyad Benton MD PATHOLOGY/CYTOLOGY ORDERABLES Performing Organization Address [facility] Co de Phone Number MARGIE FINLEY documented in this encounter Visit Diagnoses Not on filedocumented in this encounter Administered Medications Inactive Administered Medications - up to 3 most recent administrations Medication Order MAR Action Action Date Dose Rate Site BUpivacaine (PF) (MARCAINE) 0.5 % (5 mg/mL) injection ONCE PRN, Starting on Wed09/22/13 at 1110, Until Wed09/22/13 at 1500, Intra-Operative (Intra-Procedure), Routine Given 09/22/2013 11:10 AM EST 5 mLs 19- Surgical Site lidocaine (PF) (XYLOCAINE) 10 mg/mL (1 %) injection ONCE PRN, Starting on Wed09/22/13 at 1110, Until Wed09/22/13 at 1500, Intra-Operative (Intra-Procedure), Routine Given 09/22/2013 11:10 AM EST 50 mg 19- Surgical Site documented in this encounter Active and Recently Administered [...] MD) documented in this encounter Care Teams Snath Handle Assembler Relationship Specialty Start Date End Date Unknown None PCP - General 07/06/13 10/05/13 documented as of this encounter
--- OUTSIDE RECORDS SUMMARY | 2024-06-23 14:06 | XMS_ITS | Encounter Summary ---
Author Organization [facility] [place] [address] Care Team Providers Care Paying Teller Name Role Phone Unknown Primary Care Provider Unavailabl e Encounter Details Date Type Department Care Team (Late st Contact Info) Description 09/22/2013 10:51 AM EST Anesthesia Event [place] [address] Nita Granger MD [facility] [place] [address] Pablo Karimi MD [facility] [place] [address] Anesthesia Record Procedure Summary Procedure Name Responsible Anesthesiologist Anesthesia Start Time Anesthesia Stop Time EXCISION CYST, FIBROADENOMA, ABBERANT BREAST TISSUE,DUCT LESION,NIPPLE OR AREOLAR LESION (LUMPECTOMY)-NELI (WRVU 5.92) (Bilateral: Breast) Nita Granger MD 09/22/13 1051 09/22/13 1139 Events Date Time Event Comment 09/22/2013 1034 1051 Start 1053 AN Verify 1053 An Start Data 1056 An Induction 1057 An Intubation 1059 Anesthesia Ready 1130 Extubation/LMA Out 1133 an stop data 1139 Stop Meds Name Total lidocaine IV 50 mg propofol 300 mg propofol INF 126.6 mg ketorolac 30 mg fentaNYL 50 mcg dexAMETHasone 8 mg ondansetron 8 mg lactated ringers 600 mL * Agents Name O2 Air N2O Sevoflurane (et) * Blood No blood administrations on file. Lines, Drains, and Airways Type Details Placement Removal Incision 09/22/13; breast; 05/25/22 (LDA cleanup utility RA#[id number]); 1715 (LDA cleanup utility RA#[id number]) 09/22/13 0000 by Jose Levin RN 05/25/22 1715 by Susy Hauser Incision 09/22/13; breast; 05/25/22 (LDA cleanup utility RA#[id number]); 1715 (LDA cleanup utility RA#[id number]) 09/22/13 0000 by Jose Levin RN 05/25/22 1715 by Susy Hauser (RETIRED) Peripheral IV Line - Single Lumen 09/22/13; 1016; 09/22/13; 1144 09/22/13 1016 by Zofia Hubbard RN 09/22/13 1144 by Sherrie Mcdonald RN (RETIRED) Non-Surgical Airway Mask Ventilation: Easy (1); LMA Type: iGel; LMA Size: 3; Removal Date: 09/22/13; Removal Time: 1130 09/22/13 1057 by Tamy Faulkner CRNA 09/22/13 1130 by Tamy Faulkner CRNA documented in this encounter Social History Tobacco Use Types Packs/Day Years Used Date Smoking Tobacco: Never Sex and Gender Information Value Date Recorded Sex Assigned at Not on file Gender Identity Not on file Sexual Orientation Not on file documented as of this encounter OR Notes * Anesthesia Postprocedure Evaluation - Nita Granger MD - 09/22/2013 1:30 PM EST Patient: Karin Gonzalez Procedure(s) Performed: Procedure(s): EXCISION CYST, FIBROADENOMA, ABBERANT BREAST TISSUE,DUCT LESION,NIPPLE OR AREOLAR LESION (LUMPECTOMY)-NELI Actual Anesthetic: general Patient location: PACU Post-op pain: Adequate analgesia Post-op nausea: no nausea or vomiting Last Vitals: Filed Vitals: 09/22/13 1139 BP: 112/79 Pulse: 94 Temp: 36.1 ??C (97 ??F) Resp: 18 Post-op cardiovascular and respiratory status: is stable Level of consciousness: awake, alert and oriented Complications: no apparent complications and tolerated the procedure well Fluid Status: normal * Anesthesia Preprocedure Evaluation - Nita Granger MD - 09/22/2013 10:35 AM EST Pre-Anesthesia Evaluation for: Karin Gonzalez a 18 y.o. female. Procedure(s): EXCISION CYST, FIBROADENOMA, ABBERANT BREAST TISSUE,DUCT LESION,NIPPLE OR AREOLAR LESION (LUMPECTOMY)-NELI Patient Active Problem List Diagnosis ??? Breast mass No past medical history on file. No past surgical history on file. History Substance Use Topics ??? Smoking status: Never Smoker ??? Smokeless tobacco: Not on file ??? Alcohol Use: Not on file History Drug Use Not on file Allergies Allergen Reactions ??? Penicillins Rash Medications: MAR and/or home medications have been reviewed. Physical Exam: There were no vitals filed for this visit. There is no height or weight on file to calculate BMI. Airway Assessment: Mallampati: I TM distance: >3 FB Neck ROM: full Cardiovascular Assessment: cardiovascular exam normal Pulmonary Assessment: pulmonary exam normal Dental Assessment: - normal exam Misc Assessment: IV access: Peripheral line Other exam findings: Just getting over mild URI Anesthesia Plan: ASA 1 general, with a(n) intravenous induction Plan GA with RM- LMA. Plans and risks reviewed. Questions answered. Region - Other Informed Consent: Anesthetic plan and risks discussed with patient, father and mother. Plan discussed with BODY SHOP SUPERVISOR and attending. Misc. Assessment: documented in this encounter Plan of Treatment Not on file documented as of this encounter Visit Diagnoses Not on filedocumented in this encounter Administered Medications Inactive Administered Medications - up to 3 most recent administrations Medication Order MAR Action Action Date Dose Rate Site dexamethasone (DECADRON) injection PRN, Starting on Wed09/22/13 at 1106, Until Wed09/22/13 at 1139, Anesthesia Intra-op, Routine Given 09/22/2013 11:06 AM EST 8 mg fentaNYL 50mcg/mL injection PRN, Starting on Wed09/22/13 at 1106, Until Wed09/22/13 at 1139, Pain, Anesthesia Intra-op, Routine Given 09/22/2013 11:11 AM EST 25 mcg Given 09/22/2013 11:06 AM EST 25 mcg ketorolac (TORADOL) injection PRN, Starting on Wed09/22/13 at 1128, Until Wed09/22/13 at 1139, Pain, Anesthesia Intra-op, Routine Given 09/22/2013 11:28 AM EST 30 mg lactated ringers infusion CONTINUOUS PRN, Starting on Wed09/22/13 at 1051, Until Wed09/22/13 at 1139, Anesthesia Intra-op New Bag 09/22/2013 10:51 AM EST mL lidocaine (PF) (XYLOCAINE) 100 mg/5 mL (2 %) injection PRN, Starting on Wed09/22/13 at 1056, Until Wed09/22/13 at 1139, Anesthesia Intra-op, Routine Given 09/22/2013 10:56 AM EST 50 mg ondansetron (ZOFRAN) injection PRN, Starting on Wed09/22/13 at 1125, Until Wed09/22/13 at 1139, Nausea, Anesthesia Intra-op, Routine Given 09/22/2013 11:25 AM EST 8 mg propofol (DIPRIVAN) 10 mg/mL bolus injection (Anesthesia) PRN, Starting on Wed09/22/13 at 1110, Until Wed09/22/13 at 1139, Anesthesia Intra-op Given 09/22/2013 11:10 AM EST 50 mg Given 09/22/2013 10:56 AM EST 250 mg propofol (DIPRIVAN) infusion CONTINUOUS PRN, Starting on Wed09/22/13 at 1056, Until Wed09/22/13 at 1139, Anesthesia Intra-op, Routine New Bag 09/22/2013 10:56 AM EST 50 mcg/kg/min 25.3 mL/hr documented in this encounter Care Teams Paying Teller Relationship Specialty Start Date End Date Unknown None PCP - General 07/06/13 10/05/13 documented as of this encounter
--- OUTSIDE RECORDS SUMMARY | 2024-06-23 14:06 | XMS_ITS | Encounter Summary ---
[place] [address] Care Team Providers Care Production Trainer Name Role Phone Vinicio Hauser Primary Care Provider [phone] Reason for Visit * Reason Onset Date Comments Referral 05/08/2014 Encounter Details Date Type Department Care Team (Late st Contact Info) Description 05/08/2014 Telephone Orthopaedics [place] [phone] Juanita Tai Referral Social History Tobacco Use Types Packs/Day Years Used Date Smoking Tobacco: Never Sex and Gender Information Value Date Recorded Sex Assigned at Not on file Gender Identity Not on file Sexual Orientation Not on file documented as of this encounter Miscellaneous Notes * Telephone Encounter - Kaykay Ferreira - 05/14/2014 8:30 AM EDT Sent letter * Telephone Encounter - Kaykay Ferreira - 05/10/2014 3:18 PM EDT Left msg for patient to call and schedule referral * Telephone Encounter - Juanita Roman - 05/08/2014 9:32 AM EDT LMOM #1 - Called to schedule referral. documented in this encounter Plan of Treatment Not on file documented as of this encounter Visit Diagnoses Not on filedocumented in this encounter Care Teams Production Trainer Relationship Specialty Start Date End Date Vinicio Hauser [address] [place] [address] PCP - General 05/08/14 03/31/21 documented as of this encounter
--- OUTSIDE RECORDS SUMMARY | 2024-06-23 14:06 | XMS_ITS | Encounter Summary ---
Author Organization [facility] [place] [address] Care Team Providers Care Biomedical Engineering Internship Name Role Phone Vinicio Hauser Primary Care Provider [phone] Encounter Details Date Type Department Care Team (Latest Contact Info) Description 07/30/2014 11:08 AM EST - 07/30/2014 11:59 PM EST Hospital [place] [id number] [facility] Pain in right wrist Social History Tobacco Use Types Packs/Day Years Used Date Smoking Tobacco: Never Smokeless Tobacco: Never Alcohol Use Standard Drinks/Week Comments Yes 0 (1 standard drink = 0.6 oz pur e alcohol) social Sex and Gender Information Value Date Recorded Sex Assigned at Not on file Gender Identity Not on file Sexual Orientation Not on file documented as of this encounter Medications at Time of Discharge Medication Sig Dispensed Refills Start Date End Date TRINESSA, 28, 0.18/0.215/0.25 mg-35 mcg (28) tablet Take 1 tablet by mouth Daily. 05/01/2013 documented as of this encounter Plan of Treatment Not on file documented as of this encounter Procedures Procedure Name Priority Date/Time Associated Diagnosis Comments MRI WRIST WO CONTRAST Routine 07/30/2014 12:25 PM EST Pain in right wrist documented in this encounter Results * MRI wrist WO contrast (07/30/2014 12:25 PM EST) Anatomical Region Laterality Modality Wrist Magnetic Resonan ce 07/30/2014 12:2 5 PM EST Narrative 07/30/2014 2:07 PM EST Examination MR Wrist WO Bhupendra/RIGHT Clinical History chronic right wrist pain over the scapholunate interval. ??rule out occult ganglion or extensor digitorum brevisi manus muscle Comparison Right wrist radiographs 07/02/2014. Technique Noncontrast MRI right wrist was performed. Findings Bones: ??No fracture, marrow edema, or suspicious marrow signal abnormality. ??No chondral defect. ??Physiologic amount of wrist joint fluid. ??No joint effusions. ?? There is an approximately 4 x 2 x 3 mm T2 hyperintense probable ganglion cyst located along the dorsal margin of the dorsal band of the scapholunate ligament and dorsal wrist joint capsule on series 3-11 series 5-7 and series 8-15. ??A multiloculated T2 hyperintense 4 x 8 x 10 mm probable synovial ganglion cyst arising from the volar radial wrist joint capsule is also seen on series 3-11 series 8-10 which abuts the adjacent radial artery. Intrinsic ligaments: ??The scapholunate, lunotriquetral ligament and TFC disc are intact. ??Dorsal and volar radioulnar ligaments also are intact. Tendons: ??The ECU tendon is normally located and appears intact. ??Extensor tendons and flexor tendons also intact. ??No tenosynovitis. ??No extensor digitorum manus brevis muscle is identified. Carpal tunnel: ??Flexor retinaculum is intact. ??No mass is seen in the carpal tunnel. Nerves: Normal size and signal intensity of the visualized median and ulnar nerves. Impression ? 1. Small 4 x 2 x 3 mm ganglion cyst along the dorsal wrist joint immediately overlying the dorsal band of the scapholunate ligament. ? 2. No tear of the scapholunate ligament is identified. ? 3. Approximately 4 x 8 x 10 mm multiloculated probable synovial ganglion cyst emanating from the volar radial wrist joint capsule. ? 4. No accessory muscles identified. Procedure Note Gonzalez Escobar MD - 07/30/2014 Examination MR Wrist WO Bhupendra/RIGHT Clinical History chronic right wrist pain over the scapholunate interval. rule out occult ganglion or extensor digitorum brevisi manus muscle Comparison Right wrist radiographs 07/02/2014. Technique Noncontrast MRI right wrist was performed. Findings Bones: No fracture, marrow edema, or suspicious marrow signalabnormality. No chondral defect. Physiologic amount of wrist joint fluid. No jointeffusions. There is an approximately 4 x 2 x 3 mm T2 hyperintense probable ganglioncyst located along the dorsal margin of the dorsal band of the scapholunateligament and dorsal wrist joint capsule on series 3-11 series 5-7 and series 8-15.A multiloculated T2 hyperintense 4 x 8 x 10 mm probable synovial ganglioncyst arising from the volar radial wrist joint capsule is also seen on series3-11 series 8-10 which abuts the adjacent radial artery. Intrinsic ligaments: The scapholunate, lunotriquetral ligament and TFCdisc are intact. Dorsal and volar radioulnar ligaments also are intact. Tendons: The ECU tendon is normally located and appears intact. Extensor tendons and flexor tendons also intact. No tenosynovitis. No extensor digitorum manus brevis muscle is identified. Carpal tunnel: Flexor retinaculum is intact. No mass is seen in thecarpal tunnel. Nerves: Normal size and signal intensity of the visualized median andulnar nerves. Impression 1. Small 4 x 2 x 3 mm ganglion cyst along the dorsal wrist joint immediately overlying the dorsal band of the scapholunate ligament. 2. No tear of the scapholunate ligament is identified. 3. Approximately 4 x 8 x 10 mm multiloculated probable synovialganglion cyst emanating from the volar radial wrist joint capsule. 4. No accessory muscles identified. Tucker Boudreaux MD IMG MRI ORDERABLES documented in this encounter Visit Diagnoses Diagnosis Pain in right wrist Pain in joint, forearm documented in this encounter Care Teams Biomedical Engineering Internship Relationship Specialty Start Date End Date Vinicio Hauser PA [address] [place] [address] PCP - General 05/08/14 03/31/21 documented as of this encounter
--- OUTSIDE RECORDS SUMMARY | 2024-06-23 14:06 | XMS_ITS | Encounter Summary ---
[place] [address] Care Team Providers Care Preparation Room Manager Name Role Phone Vinicio Hauser Primary Care Provider [phone] Encounter Details Date Type Department Care Team (Late st Contact Info) Description 07/02/2014 Orders [place] [address] Jane Maradiaga Social History Tobacco Use Types Packs/Day Years [...] on filedocumented in this encounter Care Teams Preparation Room Manager Relationship Specialty Start Date End Date Vinicio Hauser PA [address] [place] [address] PCP - General 05/08/14 03/31/21 documented as of this encounter
--- OUTSIDE RECORDS SUMMARY | 2024-06-23 14:06 | XMS_ITS | Encounter Summary ---
Author Organization [facility] [place] [address] Care Team Providers Care Stationary Engineer Refrigeration Name Role Phone Vinicio Hauser Primary Care Provider [phone] Reason for Visit * Reason Onset Date Comments Referral 02/21/2015 Physical Therapy 02/21/2015 Encounter Details Date Type Department Care Team (Late st Contact Info) Description 02/21/2015 [place] [id number] Tucker Boudreaux MD [facility] [place] [address] Referral; Physical Therapy Social History Tobacco Use Types Packs/Day Years [...] encounter Miscellaneous Notes * Telephone Encounter - Maria Esther Uribe RN - 02/21/2015 2:05 PM EDT [facility] right split to include wrist. * Telephone Encounter - Callie Mi - 02/21/2015 12:42 PM EDT Who is calling: patient [facility] What they need:NEEDS A REFERRAL FOR PT TO GET A CUSTOM BRACE MADE BECAUSE THE OTC ONES DID NOT SUPPORT HER WRIST documented in this encounter Plan of Treatment Not on file documented as of this encounter Visit Diagnoses Not on filedocumented in this encounter Care Teams Stationary Engineer Refrigeration Relationship Specialty Start Date End Date Vinicio Hauser PA [address] [place] [address] PCP - General 05/08/14 03/31/21 documented as of this encounter
--- OUTSIDE RECORDS SUMMARY | 2024-06-23 14:06 | XMS_ITS | Encounter Summary ---
Author Organization [place] [address] Care Team Providers Care Road Roller Operator Name Role Phone Gt Thomas MD, Mark Primary Care Provider [phone] Encounter Details Date Type Department Care Team (Late st Contact Info) Description 06/16/2013 12:21 PM EDT - 06/16/2013 11:59 PM EDT Hospital Encounter [place] [phone] Breast lump Social History Tobacco Use Types Packs/Day Years [...] Procedure Name Priority Date/Time Associated Diagnosis Comments MAMMO BREAST US LIMITED Routine 06/16/2013 2:46 PM EDT Breast lump documented in this encounter Results * Mammo breast US unilateral bilateral (06/16/2013 2:46 PM EDT) Anatomical Region Laterality Modality Breast N/A Mammography 06/16/2013 2:46 PM EDT Narrative 06/19/2013 4:39 PM EDT BILATERAL BREAST ULTRASOUND ON 06/16/13: DIAGNOSTIC IMAGING SUMMARY: RIGHT BREAST LESION 1: SUSPICIOUS (BIRADS Category 4). Finding: Hypoechoic, well-circumscribed mass Size: 16 x 13mm. Location: 1200, 4cm from the nipple. LEFT BREAST LESION 1: SUSPICIOUS BIRADS Category 4). Finding: Hypoechoic, well-circumscribed mass. Size: 17 x 9mm. Location: 0300, 5cm from the nipple line. Recommendations: Though both these lesion have the apperance of fibroadenomas, tissue sampling is recommended. The options for surgical excision versus ultrasound guided biopsy were discussed with the patient and her mother. Given the patient's young age, surgical excision should be considered. If the patient desires core needle biopsy, this can be performed. The patient is scheduled to see Dr. Amisha Benton on 07/06/13 at 2:15pm. NARRATIVE: CLINICAL INDICATION: Clinical detection of lumps in both breasts. TECHNIQUE: Targeted ultrasound of the Right and [...] scanning there is a thin echogenic pseudocapsule. ??Imaging characteristics are most compatiblewith fibroadenomas. However, given that these lesions are palpable, tissue sampling is recommended. Film and interpretation reviewed by the attending Procedure Note Eboni Hooker MD - 06/19/2013 BILATERAL BREAST ULTRASOUND ON 06/16/13: DIAGNOSTIC IMAGING SUMMARY: RIGHT BREAST LESION 1: SUSPICIOUS (BIRADS Category 4). Finding: Hypoechoic, well-circumscribed mass Size: 16 x 13mm. Location: 1200, 4cm from the nipple. LEFT BREAST LESION 1: SUSPICIOUS BIRADS Category 4). Finding: Hypoechoic, well-circumscribed mass. Size: 17 x 9mm. Location: 0300, 5cm from the nipple line. Recommendations: Though both these lesion have the apperance offibroadenomas, tissue sampling is recommended. The options for surgical excision versus ultrasound guided biopsy were discussed with the patient and her mother.Given the patient's young age, surgical excision should be considered. If thepatient desires core needle biopsy, this can be performed. The patient isscheduled to see Dr. Amisha Benton on 07/06/13 at 2:15pm. NARRATIVE: CLINICAL INDICATION: Clinical detection of lumps in both breasts. TECHNIQUE: Targeted ultrasound of the Right and Left breast wasperformed. FINDINGS: In the Right breast at 1200, 4cm from the nipple, there is a 16x 13mm well-circumscribed, echogenic, oval mass with gentle lobulations. On real-time scanning a thin echogenic pseudocapsule is visualized. In the Left breast there is a 17 x 9mm hypoechoic, well-circumscribed masswith gentle lobulations. On real-time scanning there is a thin echogenic pseudocapsule. Imaging characteristics are most compatiblewithfibroadenomas. However, given that these lesions are palpable, tissue sampling isrecommended. Film and interpretation reviewed by the attending Amisha Benton MD IMG MAMMO ORDERABLE S documented in this encounter Visit Diagnoses Diagnosis Breast lump Lump or mass in breast documented in this encounter Care Teams Road Roller Operator Relationship Specialty Start Date End Date Jose Del Real MD [address] [place] [address] [place] [address] PCP - General 08/19/10 07/05/13 documented as of this encounter
--- OUTSIDE RECORDS SUMMARY | 2024-06-23 14:06 | XMS_ITS | Encounter Summary ---
Author Organization [facility] Address [facility] [place] [address] Care Team Providers Care Pad Machine Offbearer Name Role Phone Vinicio Hauser Primary Care Provider [phone] Reason for Referral * Physical Therapy (Routine) - Closed Specialty Diagnoses / Procedures Referred By Renate zuleta Referred To Contact Physical Therapy Diagnoses Pain in right wrist Gretta Goodrich PA [facility] [place] [address] Referral ID Status Reason Start Date Expiration Date V isits Requested Visits Authorized [id number] Closed Evaluate and Treat 02/21/2015 08/20/2015 12 12 Encounter Details Date Type Department Care Team (Late st Contact Info) Description 02/21/2015 Orders [place] [address] Gretta Goodrich PA [facility] [place], [place] [id number] Pain in right wrist Social History Tobacco [...] Associated Diagnoses Orde r Schedule Referral to Physical Therapy Outpatient Referral Routine Pain in right wrist Ordered: 02/21/2015 documented as of this encounter Visit Diagnoses Diagnosis Pain in right wrist Pain in joint, forearm documented in this encounter Care Teams Pad Machine Offbearer Relationship Specialty Start Date End Date Vinicio Hauser PA [address] [place] [address] PCP - General 05/08/14 03/31/21 documented as of this encounter
--- OUTSIDE RECORDS SUMMARY | 2024-06-23 14:06 | XMS_ITS | Encounter Summary ---
Author Organization [facility] Address [facility] [place] [address] Care Team Providers Care Geosciences Associate Professor Name Role Phone Vinicio Hauser Primary Care Provider [phone] Encounter Details Date Type Department Care Team (Latest Contact Info) Description 07/02/2014 9:10 AM EDT - 07/02/2014 11:59 PM EDT Hospital Encounter XRay at [facility] [place] [address] Pain in right wrist Social History Tobacco [...] Procedure Name Priority Date/Time Associated Diagnosis Comments XR WRIST COMPLETE MINIMUM 3 VIEWS Routine 07/02/2014 9:18 AM EDT Pain in right wrist documented in this encounter Results * XR wrist complete minimum 3 views (07/02/2014 9:18 AM EDT) Anatomical Region Laterality Modality N/A Radiographic Sasha ging 07/02/2014 9:18 AM EDT Narrative 07/02/2014 10:41 AM EDT Examination WRIST COMPLETE MINIMUM 3 VIEWS/RIGHT Clinical History right wrist pain Comparison None Technique 4 views of the right wrist. Findings No fracture or dislocation is seen. ??Normal carpal alignment without evidence of instability. ??No suspicious lytic or blastic lesions identified. Impression Unremarkable radiograph of the right wrist. Procedure Note Edward Vinson MD - 07/02/2014 Examination WRIST COMPLETE MINIMUM 3 VIEWS/RIGHT Clinical History right wrist pain Comparison None Technique 4 views of the right wrist. Findings No fracture or dislocation is seen. Normal carpal alignment withoutevidence of instability. No suspicious lytic or blastic lesions identified. Impression Unremarkable radiograph of the right wrist. Tucker Boudreaux MD IMG DX ORDERABLES documented in this encounter Visit Diagnoses Diagnosis Pain in right wrist Pain in joint, forearm documented in this encounter Care Teams Geosciences Associate Professor Relationship Specialty Start Date End Date Vinicio Hauser PA [address] [place] [address] PCP - General 05/08/14 03/31/21 documented as of this encounter
--- OUTSIDE RECORDS SUMMARY | 2024-06-23 14:06 | XMS_ITS | Encounter Summary ---
Author Organization [facility] [place] [address] Care Team Providers Care Information Security Name Role Phone Vinicio Hauser Primary Care Provider [phone] Reason for Visit * Reason Comments Right Wrist Pain Encounter Details Date Type Department Care Team (Late st Contact Info) Description 07/02/2014 10:25 AM EDT [place] [address] Tucker Boudreaux MD [facility] [place] [address] Pain in right wrist (Primary Dx) Discharge Disposition: Home Social History [...] Sign Reading Time Taken Comments Blood Pressure 141/88 07/02/2014 10:26 AM EDT Pulse 68 07/02/2014 10:26 AM EDT Temperature - - Respiratory Rate - - Oxygen Saturation - - Inhaled Oxygen Concentration - - Weight 84.8 kg (187 lb) 07/02/2014 10:26 AM EDT Height 165.1 cm (5' 5) 07/02/2014 10:26 AM EDT Body Mass Index 31.12 07/02/2014 10:26 AM EDT documented in this encounter Progress Notes * Tucker Boudreaux MD - 07/02/2014 10:39 AM EDT Karin Gonzalez is a 19-year-old right hand dominant female, 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 She presents with a three- year history of right wrist pain. She did not have any clear trauma associated with it, although she did have a Salter fracture of her right wrist during childhood. She does not think she had any sequelae from this. She has had intermittent pain in the wrist, but no mayda swelling. She notes that when she has a lot of pain, which typically comes and goes, she does lose some degree of range of motion of the right wrist. She has no erythema or redness that typically occurs. She denies pain in her left wrist. She does have occasional knee and low back discomfort. She reports that she is otherwise fairly healthy and does not have any other significant health problems. Examination reveals pleasant, alert, and oriented female in no apparent distress. She has well-perfused hands bilaterally. She has no swelling, warmth, or erythema in either wrist. She has wrist extension on the right to 80 degrees with wrist extension on the left to 90 degrees. Wrist flexion is to approximately 80 degrees bilaterally. She has unrestricted radial and ulnar deviation. There is no evidence of midcarpal instability. She has full forearm rotation without restriction. She has no DRUJ instability. Her Albert test is negative.Her shuck test is negative. Her TFCC is stable. She is point tender to palpation directly over the dorsal scapholunate interval, but I am unable to identify any masses present at this site. Her hand is well perfused, and there are no dermatologic lesions. X-rays of her right wrist to my reading appeared to be essentially normal. DIAGNOSIS: Chronic right wrist pain over the scapholunate interval. I am concerned about a potential occult ganglion cyst or even an extensor digitorum brevis manus muscle, which could be causing pain. I have recommended an MRI of her wrist. She will have this done and see me at the same day after a stat read is completed. If this is unremarkable, I would consider rheumatologic screening as the next step. This consultation was requested by ROSALEE Leija. documented in this encounter Plan of Treatment Not on file documented as of this encounter Results * MRI wrist WO [...] identified. Tucker Boudreaux MD IMG MRI ORDERABLES * XR wrist complete minimum 3 views [...] encounter Visit Diagnoses Diagnosis Pain in right wrist- Primary Pain in joint, forearm Pain in right wrist Pain in joint, forearm Pain in right wrist Pain in joint, forearm documented in this encounter Care Teams Information Security Relationship Specialty Start Date End Date Vinicio Hauser PA [address] [place] [address] PCP - General 05/08/14 03/31/21 documented as of this encounter
--- OUTSIDE RECORDS SUMMARY | 2024-06-23 14:07 | XMS_ITS | Encounter Summary ---
Author Organization [facility] Address [address] [place] [address] Care Team Providers Care Skidder Loader Name Role Phone Unknown, Provider Primary Care Provider Encounter Details Date Type Department Care Team (Late st Contact Info) Description 04/30/2014 Results Only [facility] Laboratory Services - [facility] ([address] [address] Elizabeth Herron, ASSISTANT CLINICAL NURSE MANAGER Social History Tobacco Use Types Packs/Day Years Used Date Smoking Tobacco: Never Assessed Sex and Gender Information Value Date Recorded Sex Assigned at Not on file Gender Identity Not on file Sexual Orientation Not on file documented as of this encounter Plan of Treatment Not on file documented as of this encounter Procedures Procedure Name Priority Date/Time Associated Diagnosis Comments PAP TEST- RESULT ONLY Routine 04/30/2014 0:00 EDT documented in this encounter Results * PAP TEST- RESULT ONLY (04/30/2014 0:00 EDT) Pathology Report: CYTOPATHOLOGY REPORT Reports generated via electronic interface contain original data; however they are lacking the format of the original report. Caution should be taken when reading/interpreti ng unformatted reports. Name: ? ISIDRO NOONAN ? Accession #: ? [id number] : ? 1995 (Age: 19) ??F ?Collect Date: ? 04/30/2014 Location: ? [facility] ? Receive Date: ? 05/02/2014 Provider: ?ELIZABETH HERRON ASSISTANT CLINICAL NURSE MANAGER Copy to: ? Specimen/Source: ?Pap Test, Cervix/Endocervix, ThinPrep Imaging System with manual evaluation Last Menstrual Period: ? 04/30/14 Hormonal/Contracep tive Status: ? Oral contraceptives ? SPECIMEN ADEQUACY ? Satisfactory for Evaluation - transformation zone component absent - scant squamous epithelial component secondary to excessive blood GENERAL CATEGORIZATION ? Negative for Intraepithelial Lesion or Malignancy ? Document reviewed and electronically signed by: ? Elissa Estevez, CT(ASCP) ? Report Date: ??05/08/2014 08:08 End of Report [facility] 04/30/2014 05/02/2014 Elizabeth Herron NP PATHOLOGY ORDERABLES [facility] [address] [place] [address] documented in this encounter Visit Diagnoses Not on filedocumented in this encounter Care Teams Skidder Loader Relationship Specialty Start Date End Date Unknown, Provider, PCP - General 05/01/14 documented as of this encounter
--- OUTSIDE RECORDS SUMMARY | 2024-06-23 14:07 | XMS_ITS | Encounter Summary ---
Author Organization [facility] Address [address] [place] [address] Care Team Providers Care Care Professionals Name Role Phone Unknown, Provider Primary Care Provider [phone] Encounter Details Date Type Department Care Team (Late st Contact Info) Description 03/17/2019 Results Only [facility] [phone] Sergei Madera [address] [place] [address] Social History Tobacco Use Types Packs/Day Years [...] Diagnosis Comments PAP TEST- RESULT ONLY Routine 03/17/2019 0:00 EDT documented in this encounter Results * PAP TEST- RESULT ONLY (03/17/2019 0:00 EDT) Pathology Report: CYTOPATHOLOGY REPORT Reports generated via electronic interface contain original data; however they are lacking the format of the original report. Caution should be taken when reading/interpreti ng unformatted reports. Name: ? ISIDRO GAR ? Accession #: ? [id number] : ? 1995 (Age: 24) ??F ?Collect Date: ? 03/17/2019 Location: ? [facility] ? Receive Date: ? 03/20/2019 Provider: ?SERGEI MADERA CNM Copy to: ?RANDAL MONK PAC ? Specimen/Source: ?Pap Test, Cervix/Endocervix, ThinPrep Imaging System with manual evaluation Last Menstrual Period: ? Menstrual/Pregnanc y Status: ? Post ? SPECIMEN ADEQUACY ? Satisfactory for Evaluation - transformation zone component present GENERAL CATEGORIZATION ? Negative for Intraepithelial Lesion or Malignancy ? Document reviewed and electronically signed by: ? PRIYANKA Last(ASCP) ? Report Date: ??03/21/2019 13:37 End of Report [facility] 03/17/2019 03/20/2019 Sergei Madera CNM PATHOLOGY ORDERABLES [facility] [address] [place] [address] documented in this encounter Visit Diagnoses Not on filedocumented in this encounter Care Teams Care Professionals Relationship Specialty Start Date End Date Unknown, Provider, PCP - General 05/01/14 documented as of this encounter
--- OUTSIDE RECORDS SUMMARY | 2024-06-23 14:07 | XMS_ITS | Encounter Summary ---
Author Organization [facility] [place] [address] Care Team Providers Care Radiologic Technologist Chief Name Role Phone Unknown Primary Care Provider Unavailabl e Encounter Details Date Type Department Care Team (Late st Contact Info) Description 06/06/2013 Orders Only Hematology [place] [address] America Moreland CONDENSER TESTER [facility] [place] [address] Breast lump (Primary Dx) Social History Tobacco Use Types Packs/Day Years Used Date Smoking Tobacco: Never Assessed Sex and Gender Information Value Date Recorded Sex Assigned at Not on file Gender Identity Not on file Sexual Orientation Not on file documented as of this encounter Plan of Treatment Not on file documented as of this encounter Results * Mammo breast US [...] in this encounter Visit Diagnoses Diagnosis Breast lump- Primary Lump or mass in breast Breast lump Lump or mass in breast documented in this encounter Care Teams Radiologic Technologist Chief Relationship Specialty Start Date End Date Unknown None PCP - General 07/06/13 10/05/13 documented as of this encounter
--- OUTSIDE RECORDS SUMMARY | 2024-06-23 14:07 | XMS_ITS | Encounter Summary ---
Author Organization [facility] Address [address] [place] [address] Care Team Providers Care Coal Cutter Name Role Phone Unknown, Provider Primary Care Provider Encounter Details Date Type Department Care Team (Late st Contact Info) Description 03/04/[address] [facility] Pathology & Laboratory Medicine - [facility] [address] [place] [address] [address] [place], [place] [address] Encounter for other general examination Social History Tobacco Use Types Packs/Day Years Used Date Smoking Tobacco: Never Assessed Sex and Gender Information Value Date Recorded Sex Assigned at Not on file Gender Identity Not on file Sexual Orientation Not on file documented as of this encounter Plan of Treatment Not on file documented as of this encounter Procedures Procedure Name Priority Date/Time Associated Diagnosis Comments PAP TEST Today 03/03/2022 10:00 EDT Encounter for other general examination documented in this encounter Results * PAP TEST (03/03/2022 10:00 EDT) Specimens A. Cervix and/or Endocervix , ThinPrep Imaging System with Manual Evaluation 03/12/2022 11:26 EDT [facility] Specimen Adequacy Satisfactory for Evaluation - transformation zone component present 03/12/2022 11:26 EDT [facility] General Categorization Negative for intraepithelial lesion or malignancy 03/12/2022 11:26 T [facility] Attestation . 03/12/2022 11:26 T [facility] at [address] Clinical History See below 03/12/20 11:26 EDT [facility] Performing Lab [facility] 03/12/2022 11:26 EDT [facility] Scanned Images 03/12/2022 11:26 EDT [facility] Papanicolaou smear specimen (specimen) CERVIX UTERI STRUCTURE / Unknown 03/03/2022 10:00 EDT 03/04/2022 11:53 EDT Sherrie Kenny [facility] PATHOLOGY ORDERABLES [facility] [address] [place] [address] documented in this encounter Visit Diagnoses Diagnosis Encounter for other general examination documented in this encounter Care Teams Coal Cutter Relationship Specialty Start Date End Date Unknown, Provider, PCP - General 05/01/14 documented as of this encounter
--- OUTSIDE RECORDS SUMMARY | 2024-06-23 14:07 | XMS_ITS | Encounter Summary ---
Author Organization [facility] Address [address] [place] [address] Care Team Providers Care Heater Operator Helper Name Role Phone Unknown, Provider Primary Care Provider [phone] Encounter Details Date Type Department Care Team (Late st Contact Info) Description 07/08/2018 Results Only [facility] [phone] Sherrie Kenny, [address] [place] [address] Social History Tobacco Use Types Packs/Day Years [...] Diagnosis Comments PAP TEST- RESULT ONLY Routine 07/08/2018 0:00 EDT documented in this encounter Results * PAP TEST- RESULT ONLY (07/08/2018 0:00 EDT) Pathology Report: CYTOPATHOLOGY REPORT Reports generated via electronic interface contain original data; however they are lacking the format of the original report. Caution should be taken when reading/interpreti ng unformatted reports. Name: ? ISIDRO GAR ? Accession #: ? [id number] : ? 1995 (Age: 23) ??F ?Collect Date: ? 07/08/2018 Location: ? [facility] ? Receive Date: ? 07/11/2018 Provider: ?SHERRIE KENNY CNM Copy to: ?RANDAL MONK PAC ? Specimen/Source: ?Pap Test, Endocervix, ThinPrep Imaging System with manual evaluation Last Menstrual Period: ? 04/17/18 Menstrual/Pregnanc y Status: ? SPECIMEN ADEQUACY ? Satisfactory for Evaluation - transformation zone component present GENERAL CATEGORIZATION ? Negative for Intraepithelial Lesion or Malignancy ? Document reviewed and electronically signed by: ? PRIYANKA Kingston(ASCP) ? Report Date: ??07/19/2018 16:48 End of Report [facility] 07/08/2018 07/11/2018 Sherrie Kenny CNM PATHOLOGY ORDERABLES [facility] [address] [place] [address] documented in this encounter Visit Diagnoses Not on filedocumented in this encounter Care Teams Heater Operator Helper Relationship Specialty Start Date End Date Unknown, Provider, PCP - General 05/01/14 documented as of this encounter
--- OUTSIDE RECORDS SUMMARY | 2024-06-23 14:07 | XMS_ITS | Encounter Summary ---
Author Organization [facility] Address [address] [place] [address] Care Team Providers Care Annual Giving Manager Name Role Phone Unknown, Provider Primary Care Provider Encounter Details Date Type Department Care Team (Late st Contact Info) Description 07/14/2021 Lab Requisition [facility] [place] [facility] Pathology & Laboratory Medicine - [address] [address] Outr Resulting Lab, Provider Social History Tobacco Use Types Packs/Day Years Used Date Smoking Tobacco: Never Assessed Sex and Gender Information Value Date Recorded Sex Assigned at Not on file Gender Identity Not on file Sexual Orientation Not on file documented as of this encounter Plan of Treatment Not on file documented as of this encounter Procedures Procedure Name Priority Date/Time Associated Diagnosis Comments HEPATITIS C AB W REFLEX TO HCV RNA BY PCR Routine 07/14/2021 7:10 EDT HEPATITIS B SURFACE ANTIGEN Routine 07/14/2021 7:10 EDT documented in this encounter Results * HEPATITIS B SURFACE ANTIGEN (07/14/2021 7:10 EDT) Hep B Surface Ag Negative Negative 07/15/2021 9:58 EDT [facility] Blood VENOUS BLOOD / Unknown 07/14/2021 7:10 EDT 07/14/2021 17:14 EDT Provider Outr Resulting Lab CHEMISTRY & BLOOD GAS ORDERABLES [facility] [address] [place] [address] * HEPATITIS C AB W REFLEX TO HCV RNA BY PCR (07/14/2021 7:10 EDT) Hep C Antibody Negative Negative 07/15/2021 10:40 EDT [facility] Blood VENOUS BLOOD / Unknown 07/14/2021 7:10 EDT 07/14/2021 17:14 EDT Provider Outr Resulting Lab CHEMISTRY & BLOOD GAS ORDERABLES [facility] [address] [place] [address] documented in this encounter Visit Diagnoses Not on filedocumented in this encounter Care Teams Annual Giving Manager Relationship Specialty Start Date End Date Unknown, Provider, PCP - General 05/01/14 documented as of this encounter
--- OUTSIDE RECORDS SUMMARY | 2024-06-23 14:07 | XMS_ITS | Encounter Summary ---
Author Organization [facility] Address [address] [place] [address] Care Team Providers Care Rug Sample Beveler Name Role Phone Unknown, Provider Primary Care Provider Encounter Details Date Type Department Care Team (Late st Contact Info) Description 07/08/2021 Lab Requisition [facility] Pathology & Laboratory Medicine - [address] [address] Outr Resulting Lab, Provider Social History Tobacco [...] Procedure Name Priority Date/Time Associated Diagnosis Comments CHLAMYDIA/N. GONORRHOEAE AMPLIFIED NUCLEIC ACID Routine 07/07/2021 14:30 EDT documented in this encounter Results * CHLAMYDIA/N. GONORRHOEAE AMPLIFIED RNA (07/07/2021 14:30 EDT) Neisseria gonorrhoeae Result Negative Negative 07/09/2021 16:05 EDT [facility] Chlamydia trachomatis Result Negative Negative 07/09/2021 16:05 EDT [facility] Swab ENTIRE ENDOCERVIX / Unknown 07/07/2021 14:30 EDT 07/08/2021 23:14 EDT Provider Outr Resulting Lab MICROBIOLOGY - GENERAL ORDERABLES [facility] [address] [place] [address] documented in this encounter Visit Diagnoses Not on filedocumented in this encounter Care Teams Rug Sample Beveler Relationship Specialty Start Date End Date Unknown, Provider, PCP - General 05/01/14 documented as of this encounter
--- OUTSIDE RECORDS SUMMARY | 2024-06-23 14:07 | XMS_ITS | Clinical Summary ---
Author Organization [facility] Address [address] [place] [address] Care Team Providers Care Pneumatic Press Hand Name Role Phone Unknown, Provider Primary Care Provider Social History Tobacco Use Types Packs/Day Years Used Date Smoking Tobacco: Never Assessed Sex and Gender Information Value Date Recorded Sex Assigned at Not on file Gender Identity Not on file Sexual Orientation Not on file Plan of Treatment Health Maintenance Due Date Last Done Comments Hepatitis B Vaccine (1 of - + 3-dose series) 01/13 COVID-19 Vaccine (2022- season) 2023 Hepatitis C Screen Completed 07/14/2021 Procedures Procedure Name Priority Date/Time Associated Diagnosis Comments HEPATITIS C AB W REFLEX TO HCV RNA BY PCR Routine 07/14/2021 7:10 EDT from Last 3 Months or Most Recently Relevant to Health Maintenance Results * HEPATITIS C AB W REFLEX TO HCV RNA BY PCR (07/14/2021 7:10 EDT) Hep C Antibody Negative Negative 07/15/2021 10:[address] [facility] Blood VENOUS BLOOD / Unknown 07/14/2021 7:10 EDT 07/14/2021 17:14 EDT Provider Outr Resulting Lab CHEMISTRY & BLOOD GAS ORDERABLES [facility] [address] [place] [address] from Last 3 Months or Most Recently Relevant to Health Maintenance Care Teams Pneumatic Press Hand Relationship Specialty Start Date End Date Unknown, Provider, PCP - General 05/01/14
--- OUTSIDE RECORDS SUMMARY | 2024-06-23 14:07 | XMS_ITS | Encounter Summary ---
Author Organization [facility] Address [address] [place] [address] Care Team Providers Care News Correspondent Name Role Phone Unknown, Provider Primary Care Provider Encounter Details Date Type Department Care Team (Late st Contact Info) Description 05/10/2015 Results Only [facility]- [facility] [phone] Mariah Pressley, [address] [place] [id number] Social History Tobacco Use Types Packs/Day Years [...] Diagnosis Comments PAP TEST- RESULT ONLY Routine 05/10/2015 0:00 EDT documented in this encounter Results * PAP TEST- RESULT ONLY (05/10/2015 0:00 EDT) Pathology Report: CYTOPATHOLOGY REPORT Reports generated via electronic interface contain original data; however they are lacking the format of the original report. Caution should be taken when reading/interpreti ng unformatted reports. Name: ? ISIDRO NOONAN ? Accession #: ? [id number] : ? 1995 (Age: 20) ??F ?Collect Date: ? 05/10/2015 Location: ? [facility] ? Receive Date: ? 05/13/2015 Provider: ?MARIAH PRESSLEY ATHLETE MANAGER Copy to: ?RANDAL MONK PAC ? Specimen/Source: ?Pap Test, Cervix/Endocervix, ThinPrep Imaging System with manual evaluation Last Menstrual Period: ? 04/27/15 Hormonal/Contracep tive Status: ? Oral contraceptives ? SPECIMEN ADEQUACY ? Satisfactory for Evaluation - transformation zone component present GENERAL CATEGORIZATION ? Negative for Intraepithelial Lesion or Malignancy ? Document reviewed and electronically signed by: ? PRIYANKA Last(ASCP) ? Report Date: ??05/15/2015 09:33 End of Report [facility] 05/10/2015 05/13/2015 Mariah Pressley ATHLETE MANAGER PATHOLOGY ORDERABLES [facility] [address] [place] [address] documented in this encounter Visit Diagnoses Not on filedocumented in this encounter Care Teams News Correspondent Relationship Specialty Start Date End Date Unknown, Provider, PCP - General 05/01/14 documented as of this encounter
--- OUTSIDE RECORDS SUMMARY | 2024-06-23 14:07 | XMS_ITS | Referral Summary ---
Author Organization [facility] Address [address] [place] [address] Care Team Providers Care Client Advisor Name Role Phone Unknown, Provider Primary Care Provider [phone] Social History Tobacco Use Types Packs/Day Years Used Date Smoking Tobacco: Never Assessed Sex and Gender Information Value Date Recorded Sex Assigned at Not on file Gender Identity Not on file Sexual Orientation Not on file Plan of Treatment Not on file Procedures Procedure Name Priority Date/Time Associated Diagnosis Comments HEPATITIS C AB W REFLEX TO HCV RNA BY PCR Routine 07/14/2021 7:10 EDT from Last 3 Months or Most Recently Relevant to Health Maintenance Results * HEPATITIS C AB W REFLEX TO HCV RNA BY PCR (07/14/2021 7:10 EDT) Hep C Antibody Negative Negative 07/15/2021 10:40 EDT [facility] Blood VENOUS BLOOD / Unknown 07/14/2021 7:10 EDT 07/14/2021 17:14 EDT Provider Outr Resulting Lab CHEMISTRY & BLOOD GAS ORDERABLES [facility] [address] [place] [address] from Last 3 Months or Most Recently Relevant to Health Maintenance Care Teams Client Advisor Relationship Specialty Start Date End Date Unknown, Provider, PCP - General 05/01/14
--- OUTSIDE RECORDS SUMMARY | 2024-06-23 14:07 | XMS_ITS | Encounter Summary ---
Author Organization [facility] Address [address] [place] [id number] Care Team Providers Care Assistant Athletic Trainer Name Role Phone Unknown, Provider Primary Care Provider Encounter Details Date Type Department Care Team (Late st Contact Info) Description 07/14/2021 Lab Requisition [facility] Pathology & Laboratory Medicine - [address] [address] Outr Resulting Lab, Provider Social History Tobacco [...] Procedure Name Priority Date/Time Associated Diagnosis Comments HIV 1/2 ANTIGEN AND ANTIBODY, 4TH GENERATION Routine 07/14/2021 7:10 EDT documented in this encounter Results * HIV 1/2 ANTIGEN AND ANTIBODY, 4TH GENERATION (07/14/2021 7:10 EDT) HIV 1 and 2 Antibody/p24 Antigen, 4th Generation Negative Negative 07/15/2021 10:35 EDT [facility] Comment: If acute HIV-1 infection is suspected in a high risk ??patient, submit plasma specimen for HIV-1 RNA quantitation test. Fourth Generation assay performed on the Siemens Centaur. Blood VENOUS BLOOD / Unknown 07/14/2021 7:10 EDT 07/14/2021 17:14 EDT Provider Outr Resulting Lab IMMUNOLOGY A ND SEROLOGY ORDERABLES [facility] [address] [place] [id number] documented in this encounter Visit Diagnoses Not on filedocumented in this encounter Care Teams Assistant Athletic Trainer Relationship Specialty Start Date End Date Unknown, Provider, PCP - General 05/01/14 documented as of this encounter
--- OUTSIDE RECORDS SUMMARY | 2024-06-23 14:07 | XMS_ITS | Encounter Summary ---
Author Organization [facility] Address [address] [place] [address] Care Team Providers Care Burial Needs Salesperson Name Role Phone Unknown, Provider Primary Care Provider Encounter Details Date Type Department Care Team (Late st Contact Info) Description 07/14/2021 Lab Requisition [facility] Pathology & Laboratory Medicine - [address] [address] Outr Resulting Lab, Provider Social History Tobacco [...] Procedure Name Priority Date/Time Associated Diagnosis Comments RUBELLA IGG ANTIBODY Routine 07/14/2021 7:10 EDT VARICELLA IGG ANTIBODY Routine 07/14/2021 7:10 EDT documented in this encounter Results * VARICELLA IGG ANTIBODY (07/14/2021 7:10 EDT) Varicella IgG Ab Positive See Note 07/15/2021 10:06 EDT [facility] Comment:Presence of detectab le Varicella Zoster virus IgG antibodies. Blood VENOUS BLOOD / Unknown 07/14/2021 7:10 EDT 07/14/2021 17:14 EDT Provider Outr Resulting Lab IMMUNOLOGY A ND SEROLOGY ORDERABLES [facility] [address] [place] [address] * RUBELLA IGG ANTIBODY (07/14/2021 7:10 EDT) Rubella IgG Ab Positive See Note 07/15/2021 10:15 EDT [facility] Comment:Positive for IgG ant ibodies to Rubella virus. Blood VENOUS BLOOD / Unknown 07/14/2021 7:10 EDT 07/14/2021 17:14 EDT Provider Outr Resulting Lab CHEMISTRY & BLOOD GAS ORDERABLES [facility] [address] [place] [address] documented in this encounter Visit Diagnoses Not on filedocumented in this encounter Care Teams Burial Needs Salesperson Relationship Specialty Start Date End Date Unknown, Provider, PCP - General 05/01/14 documented as of this encounter
== END 2024-06-23 14:02 | disposition home or self-care (01) ==
LOC: NCHCN 14:01
PROVIDERS: PCP Nurse Practitioner Family; Visit Provider Family Medicine
DX: Z12.4 Encounter for screening for malignant neoplasm of cervix (principal)
CPT/HCPCS: 88142; 87624